=== PATIENT | female | born 1975 | race Caucasian/White ===

== ENCOUNTER 2020-07-04 18:12 | Inpatient (IN) ==
[2020-07-04] MEDS ORDERED: ONDANSETRON INJ 2 MG/ML 2 ML VIAL IV STA (18:43)
[2020-07-04] MEDS ORDERED: KETOROLAC 30 MG/ML VIAL IV STA (18:43)
[2020-07-04] MEDS ORDERED: SODIUM CHLORIDE 0.9% 500 ML IV SCH (18:45)
--- NOTE | 2020-07-04 18:47 | Emergency Department Note ---
History of Present Illness General Chief complaint: Nausea Stated complaint: BODY [id number] Time Seen by Provider: 07/04/20 18:22 Source: patient Mode of arrival: ambulatory Limitations: no limitations History of Present Illness Provider complaint: Body aches, nausea, chills and headache Maximum Pain Intensity: 9 This is a 44-year-old female who presents to the ED with a chief complaint of body aches, chills, nausea and headache that started when she awoke this morning. She also reports some mild epigastric abdominal pain. She states that [place] at [facility] on Saturday. She denies any sick contacts. She denies any upper respiratory symptoms. No urinary symptoms. No abnormal vaginal discharge or bleeding. Denies any fevers. She took NyQuil which did not help. She denies the possibility of . She has an IUD. No other complaints at this time. Home Medications Home Medications Medication Instructions Recorded Confirmed Type bupropion HCl 300 mg PO QAM 11/29/18 03/29/19 History fluticasone propionate [Flonase 2 spray INTRANASAL QAM 11/29/18 03/29/19 History Allergy Relief] sertraline 150 mg PO QAM 11/29/18 03/29/19 History trazodone 200 mg PO HS 11/29/18 03/29/19 History ziprasidone HCl 80 mg PO HS 11/29/18 03/29/19 History atomoxetine 40 mg PO DAILY 03/29/19 03/29/19 History cyclobenzaprine 10 mg PO TID PRN #10 tab 03/29/19 Rx lamotrigine 50 mg PO BID 03/29/19 03/29/19 History omeprazole 40 mg PO QAM 03/29/19 03/29/19 History ziprasidone HCl 40 mg PO QAM 03/29/19 03/29/19 History cyclobenzaprine 10 mg PO TID PRN #30 tab 04/17/19 Rx oxycodone-acetaminophen [Percocet] 1 - 2 tab PO Q6H PRN #10 tab 04/17/19 Rx Allergies Allergy/AdvReac Type Severity Reaction Status Date / Time morphine Allergy Unknown Hallucinati Verified 07/04/20 20:44 ng Past Med/Surg History Medical History Ankle pain, right Anxiety Bipolar disorder Depression GERD (gastroesophageal reflux disease) Hypertension Surgical History H/O section History of ankle surgery History of appendectomy Social History Smoking Status: Never smoker Preferred Language: Khmer marital status: single current occupational status: unemployed Feels Safe at Home: Yes Review of Systems A total of 10 systems reviewed and were otherwise negative Physical Exam Vital Signs Vital Signs - 24 hr 07/04/20 18:15 07/04/20 19:30 Temperature 37.3 C Temperature Source Oral Pulse Rate 80 Pulse Rate [Right Finger] 54 L Respiratory Rate 20 20 Blood Pressure 127/95 Blood Pressure [Right Arm] 132/83 Blood Pressure Mean 105 Blood Pressure Mean [Right Arm] 99 Pulse Oximetry 97 98 Oxygen Delivery Method Room Air Room Air Sepsis Recent Fever Within 48 Hours No Sepsis New/Unexplained Change in Mental Status No Sepsis Action Taken by Nursing No Action Required CONSTITUTIONAL/VITAL SIGNS: Reviewed / noted above. GENERAL: Non-toxic in appearance. INTEGUMENTARY: Warm, dry, and [place]. HEAD: Normocephalic. EYES: without scleral icterus or trauma. ENT/OROPHARYNX: clear and moist. LYMPHADENOPATHY/NECK: Is supple without lymphadenopathy or meningismus. RESPIRATORY: Lungs clear and equal. CARDIOVASCULAR: Regular rate and rhythm. GI/ABDOMEN: Soft and nontender. No organomegaly or pulsatile mass. No rebound or guarding. Normal bowel sounds. EXTREMITIES: Warm and well perfused. BACK: No CVA tenderness. NEUROLOGICAL: Intact without focal deficits. PSYCHIATRIC: normal affect. MUSCULOSKELETAL: Normally developed with good muscle tone. TRIAGE NURSING DOCUMENTATION REVIEWED. Course Administered Medications Discontinued Medications Sodium Chloride (Nss) 500 mls @ 999 mls/hr IV .Q31M GLADYS Stop: 07/04/20 19:15 Last Infusion: 07/04/20 19:39 Dose: 0 mls/hr Documented by: [id number] Admin: 07/04/20 19:05 Dose: 999 mls/hr Documented by: [id number] Ketorolac Tromethamine (Ketorolac 30 Mg/Ml Vial) 30 mg IV NOW STA Stop: 07/04/20 18:44 Last Admin: 07/04/20 19:04 Dose: 30 mg Documented by: [id number] Ondansetron HCl (Ondansetron Inj 2 Mg/Ml 2 Ml Vial) 4 mg IV NOW STA Stop: 07/04/20 18:44 Last Admin: 07/04/20 19:04 Dose: 4 mg Documented by: [id number] Medical Decision Making Differential Diagnosis Differential includes acute coronary syndrome, myocardial infarction, CVA, TIA, anemia, infection, pneumonia, UTI, pyelonephritis, poor nutrition, dehydration, electrolyte disturbance,hypoglycemia. Medical Records Attestation: I reviewed the patient's medical records. Home Medications Current Medication List: was personally reviewed by me Laboratory Data Attestation: I reviewed the patient's lab results. Result diagrams: 07/04/20 19:00 07/04/20 19:00 Lab Results 07/04/20 07/04/20 07/04/20 Range/Units 19:00 19:00 20:05 WBC 7.87 (4.8-10.8) K/uL RBC 4.70 (4.2-5.4) M/uL Hgb 13.2 (12.0-16.0) g/dL Hct 40.6 (37-47) % MCV 86.4 (80-100) fL MCH 28.1 (25-34) pg MCHC 32.5 (32-36) g/dL RDW Std Deviation 39.8 (36.4-46.3) fL RDW Coeff of Seth 12.5 (11.5-14.5) % Plt Count 244 (130-400) K/uL MPV 9.5 (7.4-10.4) fL Immature Gran % (Auto) 0.3 % Neut % (Auto) 71.3 % Lymph % (Auto) 20.8 % Terry % (Auto) 5.8 % Eos % (Auto) 1.7 % Baso % (Auto) 0.1 % Neut # (Auto) 5.61 (1.4-6.5) K/uL Lymph # (Auto) 1.64 (1.2-3.4) K/uL Terry # (Auto) 0.46 (0.11-0.59) K/uL Eos # (Auto) 0.13 (0-0.5) K/uL Baso # (Auto) 0.01 (0-0.2) K/uL Immature Gran # (Auto) 0.02 (0.00-0.02) K/uL Sodium 136 (136-145) mmol/L Potassium 3.7 (3.5-5.1) mmol/L Chloride 103 (98-107) mmol/L Carbon Dioxide 27 (21-32) mmol/L Anion Gap 6.0 (3-11) BUN 10 (7-18) mg/dl Creatinine 1.03 (0.6-1.2) mg/dl Est Cr Clr Drug Dosing 74.0 ml/min Est GFR ( Amer) 75.5 Est GFR (Non-Af Amer) 65.1 BUN/Creatinine Ratio 9.7 L (10-20) Glucose 96 (70-99) mg/dl Calcium 9.0 (8.5-10.1) mg/dl Total Bilirubin 0.4 (0.2-1) mg/dl AST 14 L (15-37) U/L ALT 29 (12-78) U/L Alkaline Phosphatase 67 (45-117) U/L Total Protein 7.7 (6.4-8.2) gm/dl Albumin 3.8 (3.4-5.0) gm/dl Globulin 3.9 (2.5-4.0) gm/dl Albumin/Globulin Ratio 1.0 (0.9-2) Lipase 1752 H (73-393) U/L Urine Color Yellow Urine Appearance Clear (Clear) Urine pH 6.5 (4.5-7.5) Ur Specific [place] 1.033 H (1.000-1.030) Urine Protein Negative (Negative) Urine Glucose (UA) Negative (Negative) Urine Ketones Negative (Negative) Urine Blood Negative (Negative) Urine Nitrite Negative (Negative) Urine Bilirubin Negative (Negative) Urine Urobilinogen Negative (Negative) Ur Leukocyte Esterase Trace H (Negative) Urine WBC (Auto) 5-10 H (0-5) /hpf Urine RBC (Auto) 0-4 (0-4) /hpf U Hyaline Cast (Auto) 1-5 (0-5) /lpf U Epithel Cells (Auto) >30 H (0-5) /lpf Urine Bacteria (Auto) 2+ H (Negative) POC Ur Test (NEG) 07/04/20 Range/Units 20:05 WBC (4.8-10.8) K/uL RBC (4.2-5.4) M/uL Hgb (12.0-16.0) g/dL Hct (37-47) % MCV (80-100) fL MCH (25-34) pg MCHC (32-36) g/dL RDW Std Deviation (36.4-46.3) fL RDW Coeff of Seth (11.5-14.5) % Plt Count (130-400) K/uL MPV (7.4-10.4) fL Immature Gran % (Auto) % Neut % (Auto) % Lymph % (Auto) % Terry % (Auto) % Eos % (Auto) % Baso % (Auto) % Neut # (Auto) (1.4-6.5) K/uL Lymph # (Auto) (1.2-3.4) K/uL Terry # (Auto) (0.11-0.59) K/uL Eos # (Auto) (0-0.5) K/uL Baso # (Auto) (0-0.2) K/uL Immature Gran # (Auto) (0.00-0.02) K/uL Sodium (136-145) mmol/L Potassium (3.5-5.1) mmol/L Chloride (98-107) mmol/L Carbon Dioxide (21-32) mmol/L Anion Gap (3-11) BUN (7-18) mg/dl Creatinine (0.6-1.2) mg/dl Est Cr Clr Drug Dosing ml/min Est GFR ( Amer) Est GFR (Non-Af Amer) BUN/Creatinine Ratio (10-20) Glucose (70-99) mg/dl Calcium (8.5-10.1) mg/dl Total Bilirubin (0.2-1) mg/dl AST (15-37) U/L ALT (12-78) U/L Alkaline Phosphatase (45-117) U/L Total Protein (6.4-8.2) gm/dl Albumin (3.4-5.0) gm/dl Globulin (2.5-4.0) gm/dl Albumin/Globulin Ratio (0.9-2) Lipase (73-393) U/L Urine Color Urine Appearance (Clear) Urine pH (4.5-7.5) Ur Specific [place] (1.000-1.030) Urine Protein (Negative) Urine Glucose (UA) (Negative) Urine Ketones (Negative) Urine Blood (Negative) Urine Nitrite (Negative) Urine Bilirubin (Negative) Urine Urobilinogen (Negative) Ur Leukocyte Esterase (Negative) Urine WBC (Auto) (0-5) /hpf Urine RBC (Auto) (0-4) /hpf U Hyaline Cast (Auto) (0-5) /lpf U Epithel Cells (Auto) (0-5) /lpf Urine Bacteria (Auto) (Negative) POC Ur Test NEG (NEG) MDM Narrative Patient presents with a little over 24 hours worth of body aches, chills, nausea and headache. She has no other complaints at this time. Her exam reveals some tenderness in the epigastric area. Her vital signs are normal. She is afebrile. The patient's CBC and chemistry panel was normal. Lipase is 1752. test is negative. Urine appears contaminated but not infected. The patient's test results suggest acute pancreatitis. She was hydrated with IV fluids and given IV Toradol and IV Zofran. She will be seen by the hospitalist. Impression & Plan Acute pancreatitis, Nausea Discharge Plan Visit Data Chief Complaint: Nausea Stated Complaint: BODY [id number] ED Provider: Von Walters Discharge Problem: Acute pancreatitis, Nausea Patient Disposition: Being Evaluated by Hospitalist Forms Stand Alone Forms: [facility] Prescriptions Prescriptions: No Action lamotrigine 25 mg tablet 50 mg PO BID RF: 0 omeprazole 20 mg capsule,delayed release(DR/EC) 40 mg PO QAM RF: 0 ziprasidone HCl 40 mg capsule 40 mg PO QAM RF: 0 atomoxetine 40 mg capsule 40 mg PO DAILY RF: 0 cyclobenzaprine 10 mg tablet 10 mg PO TID PRN (Reason: muscle spasm) Qty: 10 RF: 0 cyclobenzaprine 10 mg tablet 10 mg PO TID PRN (Reason: muscle spasm) Qty: 30 RF: 0 oxycodone-acetaminophen [Percocet] 5-325 mg tablet 1 - 2 tab PO Q6H PRN (Reason: pain) Qty: 10 RF: 0 sertraline 100 mg tablet 150 mg PO QAM RF: 0 trazodone 100 mg tablet 200 mg PO HS RF: 0 fluticasone propionate [Flonase Allergy Relief] 50 mcg/actuation spray,suspension 2 spray Intranasal QAM RF: 0 ziprasidone HCl 80 mg capsule 80 mg PO HS RF: 0 bupropion HCl 300 mg tablet extended release 24 hr 300 mg PO QAM RF: 0 Referrals Referrals: Nisha Tinoco MD [Primary Care Provider] -
[2020-07-04 19:11] LABS: Basophils # (auto) 0.01 K/uL (0-0.2); Basophils % (auto) 0.1 %; Eosinophils # (auto) 0.13 K/uL (0-0.5); Eosinophils % (auto) 1.7 %; Hematocrit (blood only) 40.6 % (37-47); Hemoglobin 13.2 g/dL (12.0-16.0); Immature Granulocytes # (auto) 0.02 K/uL (0.00-0.02); Immature Granulocytes % (auto) 0.3 %; Lymphocytes # (auto) 1.64 K/uL (1.2-3.4); Lymphocytes % (auto) 20.8 %; Mean Corpuscular Hemoglobin 28.1 pg (25-34); Mean Corpuscular Hgb Conc 32.5 g/dL (32-36); Mean Corpuscular Volume 86.4 fL (80-100); Mean Platelet Volume 9.5 fL (7.4-10.4); Monocytes # (auto) 0.46 K/uL (0.11-0.59); Monocytes % (auto) 5.8 %; Neutrophils # (auto) 5.61 K/uL (1.4-6.5); Neutrophils % (auto) 71.3 %; Platelet Count 244 K/uL (130-400); RDW Coefficient of Variation 12.5 % (11.5-14.5); RDW Standard Deviation 39.8 fL (36.4-46.3); White Blood Count 7.87 K/uL (4.8-10.8)
[2020-07-04 19:28] LABS: Albumin Level 3.8 gm/dl (3.4-5.0); BUN Creatinine Ratio 9.7 (10-20); Est GFR (African American) 75.5; Est GFR (Non-African American) 65.1; Potassium 3.7 mmol/L (3.5-5.1)
[2020-07-04 19:31] LABS: Bilirubin,Total 0.4 mg/dl (0.2-1); Globulin 3.9 gm/dl (2.5-4.0); Total Protein 7.7 gm/dl (6.4-8.2)
[2020-07-04 20:19] LABS: Appearance Urine Clear (Clear); Bacteria Urine Automated 2+ (Negative); Bilirubin Urine Negative (Negative); Blood Urine Negative (Negative); Color Urine Yellow; Epithelial Cell Urine Auto >30 /lpf (0-5); Glucose Urine UA Negative (Negative); Ketones Urine Negative (Negative); Leukocyte Esterase Urine Trace (Negative); Nitrite Urine Negative (Negative); Protein Urine Negative (Negative); RBC Urine Automated 0-4 /hpf (0-4); Specific Gravity Urine 1.033 (1.000-1.030); Urobilinogen Urine Negative (Negative); pH Urine 6.5 (4.5-7.5)
[2020-07-04] MEDS ORDERED: ACETAMINOPHEN 325 MG TAB ONE (21:15)
[2020-07-04] MEDS ORDERED: ACETAMINOPHEN 325 MG TAB PO STA (21:18)
[2020-07-04] MEDS ORDERED: FLUTICASONE PROPIONATE NA SPR 16 GM BTL PRN (22:35)
[2020-07-04] MEDS ORDERED: CYCLOBENZAPRINE HCL 10 MG TAB PO PRN (22:47)
[2020-07-04] MEDS: SODIUM CHLORIDE 0.9% 1000ML 1,000 ML IV SCH (22:48)
[2020-07-04] MEDS ORDERED: IOVERSOL 100ml IV ONE (23:39)
[2020-07-04] MEDS: MIRTAZAPINE TAB 15 MG TAB PO SCH (23:40)
[2020-07-04] MEDS: DOXAZOSIN MESYLATE 1 MG TAB PO SCH (23:40)
[2020-07-04] MEDS: cefTRIAXone SODIUM 2,000 MG in DEXTROSE 5% 50 ML IV SCH (23:40)
--- NOTE | 2020-07-05 01:23 | History and Physical Report ---
DATE OF ADMISSION: 07/04/2020 CHIEF COMPLAINT: Nausea, abdominal pain. HISTORY OF PRESENT ILLNESS: This is a 44-year-old female with past medical history significant for chronic kidney disease stage II, prehypertension, history of herpes labialis, attention deficit disorder, history of tobacco disorder, history of daytime somnolence, history of bipolar disorder, presents with nausea and abdominal pain. The patient says she woke up today with headaches, nausea and has some abdominal discomfort in the epigastric region and body aches and chills. She had 1 episode of diarrhea. Because of ongoing symptoms, she came to the ER. Denies any fever, chills. No shortness of breath, no chest pain. No earache, no runny nose, no sore throat. No loss of sense of smell or taste. No rash seen. Was nauseous, but no vomiting. No burning micturition, no hematuria. No swelling in the legs. The patient says she went to [place] last Saturday. There were lot of people, but denies any exposure to sick patients. The patient's labs are all fine except lipase elevated at 1752 and urinalysis shows trace leukocyte esterase and +2 bacteria. The patient is afebrile and hemodynamically stable in the ER. ALLERGIES: TO MORPHINE. PAST MEDICAL HISTORY: As mentioned above. PAST SURGICAL HISTORY: , colonoscopy, fusion of the right ankle joint, appendectomy. MEDICATIONS: The patient is currently on atomoxetine 10 mg p.o. a.m., bupropion 300 mg p.o. a.m., buspirone 15 mg p.o. t.i.d., cyclobenzaprine 10 mg p.o. t.i.d. p.r.n., doxazosin 1 mg p.o. at bedtime, Flonase 2 sprays intranasal q.a.m. p.r.n., lamotrigine 100 mg p.o. a.m., Remeron 15 mg p.o. at bedtime, omeprazole 40 mg p.o. a.m., Zoloft 100 mg p.o. a.m. FAMILY HISTORY: Significant for father had asthma, hypertension, depression, PTSD. Mother had breast cancer, diabetes, thyroid disorder. Son has asthma, depression, anxiety, PTSD. Paternal cousin has breast cancer. Paternal grandmother had colon cancer. Paternal grandfather had stroke. Maternal grandfather had heart disorder. Maternal grandfather also had hypertension. SOCIAL HISTORY: . Smoked quarter pack a day for 10 years, quit in 05/2019. Used to drink couple of beers a day, but quit about 1 month ago. No drug use. REVIEW OF SYMPTOMS: As per HPI. Rest of review of symptoms negative. PHYSICAL EXAMINATION: GENERAL: The patient is obese, not in acute distress. VITAL SIGNS: Temperature 37.3, pulse 70, respiratory rate 20, blood pressure 121/71, oxygen 98% on room air. HEENT: Pupils equal, round, and reactive to light. Oral mucosa moist. NECK: No JVD seen. No neck masses seen. Supple. CARDIOVASCULAR SYSTEM: S1, S2 heard. Regular rate and rhythm. No murmur, no gallop. RESPIRATORY SYSTEM: Normal AP diameter. No accessory muscle use. No wheezing, no crackles. ABDOMEN: Soft, bowel sounds present. Mild epigastric discomfort present. No distention seen. CENTRAL NERVOUS SYSTEM: Cranial nerves II-XII grossly intact. Nonfocal. EXTREMITIES: No edema, no erythema. LABORATORY DATA: WBC 7.8, hemoglobin 13.2, hematocrit 40.6, platelets 244. Sodium 136, potassium 3.7, chloride 103, bicarb 27, BUN 10, creatinine 1.03, serum glucose 96, calcium 9. Total bilirubin 0.4, AST 14, ALT 29, alkaline phosphatase 67, lipase 1752. Urinalysis: Trace leukocyte esterase, +2 bacteria. ASSESSMENT AND PLAN: This is a 44-year-old female who presents with headache, body aches, chills, nausea and abdominal discomfort. 1. Pancreatitis. The patient has elevated lipase of 1752 and she has epigastric tenderness, possibly pancreatitis. The patient says she used to drink 2 or 3 beers every day, but quit about 1 month ago. Calcium level is normal. We will check the fasting lipid profile. We will check the CT scan. We will keep her n.p.o., IV fluids, IV antiemetics. Currently, the patient is not in severe pain. THE PATIENT IS ALLERGIC TO MORPHINE. We will monitor. Consult GI in a.m. for further recommendations. 2. Possible urinary tract infection. Her symptoms of headache and body aches, chills could be from the urinary tract infection. Her UA is slightly positive for leukocyte esterase and +2 bacteria. We will started on Rocephin, follow the cultures. Fluids as above. The patient went to the [facility] last Saturday, but she does not have any COVID symptoms. No fever, no shortness of breath, no loss of sense of smell or taste, but if any concerning, we will consider ordering COVID testing.Will follow cxr. 3. History of bipolar and attention deficit disorder. Continue home medications of Lamictal, mirtazapine, Zoloft, buspirone, bupropion and atomoxetine. Follow with PCP and Psychiatry. 4. Gastroesophageal reflux disease. Continue omeprazole. 5. Deep venous thrombosis prophylaxis, SCDs for now. DISPOSITION: Admit to medical floor. Expect discharge home and follow with family doctor. Level 1 full code. MTDD
[2020-07-05] MEDS: ACETAMINOPHEN 325 MG TAB PO PRN ×3 (04:34→20:27)
[2020-07-05] MEDS: SODIUM CHLORIDE 0.9% 1000ML 1,000 ML IV SCH ×4 (04:35→19:29)
[2020-07-05 05:38] LABS: Basophils # (auto) 0.01 K/uL (0-0.2); Basophils % (auto) 0.2 %; Eosinophils # (auto) 0.07 K/uL (0-0.5); Eosinophils % (auto) 1.1 %; Hematocrit (blood only) 34.9 % (37-47); Hemoglobin 11.2 g/dL (12.0-16.0); Immature Granulocytes # (auto) 0.01 K/uL (0.00-0.02); Immature Granulocytes % (auto) 0.2 %; Lymphocytes # (auto) 0.85 K/uL (1.2-3.4); Lymphocytes % (auto) 13.2 %; Mean Corpuscular Hgb Conc 32.1 g/dL (32-36); Mean Corpuscular Volume 87.3 fL (80-100); Mean Platelet Volume 9.9 fL (7.4-10.4); Monocytes # (auto) 0.37 K/uL (0.11-0.59); Monocytes % (auto) 5.7 %; Neutrophils # (auto) 5.15 K/uL (1.4-6.5); Neutrophils % (auto) 79.6 %; Platelet Count 202 K/uL (130-400); RDW Coefficient of Variation 12.6 % (11.5-14.5); RDW Standard Deviation 40.8 fL (36.4-46.3); White Blood Count 6.46 K/uL (4.8-10.8)
[2020-07-05 06:12] LABS: BUN Creatinine Ratio 9.2 (10-20); Calcium 7.8 mg/dl (8.5-10.1); Creatinine Clr Calc Pharmacy 80.2 ml/min; Est GFR (African American) 83.3; Est GFR (Non-African American) 71.8; Potassium 3.5 mmol/L (3.5-5.1)
[2020-07-05] MEDS ORDERED: TRAMADOL HCL 50 MG TABLET PO ONE (07:58)
[2020-07-05] MEDS: SERTRALINE HCL 100 MG TABLET PO SCH (08:00)
[2020-07-05] MEDS: BusPIRone 15 MG TAB PO SCH ×3 (08:00→20:24)
[2020-07-05] MEDS: PANTOprazole 40 MG TAB PO SCH (08:01)
[2020-07-05] MEDS: lamoTRIgine 100 MG TAB PO SCH (08:01)
[2020-07-05] MEDS: BuPROPion XL 300 MG TABCR PO SCH (08:01)
[2020-07-05] MEDS: ATOMOXETINE HCL 10 MG CAPSULE PO SCH (08:02)
--- NOTE | 2020-07-05 08:18 | XRay Report ---
SINGLE VIEW CHEST CLINICAL HISTORY: Dyspnea. FINDINGS: An AP, portable, upright chest radiograph is compared to study dated 11/29/2018. The cardiome diastinal silhouette is unremarkable. Mild atelectasis is noted at the lung bases. The lungs and pleu ral spaces are otherwise clear. No pneumothorax is seen. The bony thorax is grossly intact. There is moderate thoracic scoliosis. IMPRESSION: No active disease in the chest. ACT 112: Negative or not required by law. Electronically signed by: Maximus Ortega M.D. 07/05/2020 8:16 AM
--- NOTE | 2020-07-05 09:03 | CT Scan Report ---
CT SCAN OF THE ABDOMEN AND PELVIS WITH IV CONTRAST CLINICAL HISTORY: Generalized abdominal pain. Elevated lipase. COMPARISON STUDY: Abdominal CT dated 02/17/2016. TECHNIQUE: Following the IV administration of 93 cc of Optiray 320, CT scan of the abdomen and pelvi s is performed from the lung bases to the proximal femora. Images are reviewed in the axial, sagittal , and coronal planes. IV contrast was administered without complication. A dose lowering technique wa s utilized adhering to the principles of ALARA. CT DOSE: 749.75 mGy.cm FINDINGS: Lung bases: The heart is normal in size noting trace pericardial effusion. The lung bases are clear n oting mild left basilar atelectasis. Liver: The contrast-enhanced liver is normal in size, contour, and attenuation. There is no intrahepa tic biliary ductal dilatation. The hepatic veins and portal veins are patent. Gallbladder: The gallbladder is mildly distended but otherwise normal in appearance. Spleen: Normal in size and attenuation. Pancreas: The pancreas is normal in appearance. The duct is normal in caliber and the gland enhances homogeneously. No surrounding inflammation is identified. There is no peripancreatic fluid collection . The splenic vein is patent. Adrenal glands: Unremarkable. Kidneys: The contrast enhanced kidneys are normal in size and without hydronephrosis. The kidneys enh ance symmetrically. Abdominal vasculature: The abdominal aorta is normal in course and caliber. Bowel: There is no bowel obstruction. The appendix is not identified and reported surgically absent. Peritoneum: There is no intraperitoneal free air or abdominal ascites. There is a large fat-containin g umbilical hernia. Lymphadenopathy: None. Pelvic viscera: The bladder wall appears thickened and there is pericystic inflammation. The uterus a nd adnexa are normal as visualized noting an intrauterine device in place. There are tiny ovarian fol licles. Skeletal structures: No lytic or blastic lesions are seen. There is thoracolumbar scoliosis. Mild lum bosacral spondylosis is noted. There is also mild sclerotic change in the sacroiliac joints. IMPRESSION: 1. The pancreas is normal in appearance. There is no CT evidence of acute pancreatitis as clinically queried. 2. Findings suggest cystitis. Correlation with clinical findings and urinalysis will be required. 3. The gallbladder is distended but otherwise normal in appearance. ACT 112: Negative or not required by law. Electronically signed by: Maximus Ortega M.D. 07/05/2020 9:01 AM
--- NOTE | 2020-07-05 10:03 | Gastrointestinal Consultation ---
Date of Consultation July 05, 2020 Assessment & Plan (1) Serum lipase elevation: 44 y/o female with PMHx tobacco use, ADHD and others admitted with nausea/headache, body aches, found to have elevated lipase with normal appearing pancreas on CT (distended GB noted). Since admission lipase 1700->213 with no elevated LFTs, leukocytosis. Currently abd is soft, she's afebrile, HD stable. - Reviewed diff dx with pt (viral etiology, vs GB stone vs ETOH, autoimmune, underlying pancreatic mass, vs other) - MRCP today - Afterward can start trial of clear liquid diet - F/u pending results of MRCP (if neg, recommend outpt EGD/EUS in 4 weeks - Would avoid ETOH, tobacco and this was discussed with pt Thank you for allowing us to participate in the care of this patient. Please call with any acute changes, questions or concerns. Please see addendum below with additional recommendation from my supervising physician. Supervising Physician Co-Signing Physician Notes I performed a history and physical examination of the patient today, including specifically on physical exam - soft abdomen. I have discussed the patient's management with the advanced practitioner. Please refer to the nurse practitioner's note for the documented findings and plan of care. Mild acute pancreatitis, unclear etiology. MRCP today EUS as OP. History of Present Illness Reason for Consultation: pancreatitis Attending Physician: Glen Landry MD History of Present Illness Pt is a 44 y/o female with PMhx CKD, ADHD, tobacco use, bipolar disorder, and others admitted yesterday with nausea, headache and body aches that began suddenly, found to have lipase 1700 with normal LFTs, no leukocytosis. CTAP with unremarkable pancreas but GB was noted to be distended. Overnight has a mild headache. Denies n/v, abd pain, fever, chills, CP, SOB, hematemesis, melena, hematochezia, jaundice, dark urine, weight loss, change in appetite, leg edema. Overnight lipase trended down to 213. Triglycerides 120's. She denies a prior h/o pancreatitis. She notes a prior h/o ETOH abuse, cutting back approx 2 years ago. She now drinks maybe once a month, 6 beers at a time; last ETOH was 1 month ago. She quit smoking 14 days ago. Fam hx: Father with ETOH pancreatitis. Grandmother had colon CA Colonoscopy 05/20/20: Normal Allergies Allergy/AdvReac Type Severity Reaction Status Date / Time morphine Allergy Unknown Hallucinati Verified 07/04/20 20:44 ng Home Medications Home Medications Medication Instructions Recorded Confirmed Type bupropion HCl 300 mg PO QAM 11/29/18 07/04/20 History fluticasone propionate [Flonase 2 spray INTRANASAL QAM PRN 11/29/18 07/04/20 History Allergy Relief] sertraline 100 mg PO QAM 11/29/18 07/04/20 History omeprazole 40 mg PO QAM 03/29/19 07/04/20 History atomoxetine 10 mg PO QAM 07/04/20 07/04/20 History buspirone 15 mg PO TID 07/04/20 07/04/20 History cyclobenzaprine 10 mg PO TID PRN 07/04/20 07/04/20 History doxazosin 1 mg PO HS 07/04/20 07/04/20 History lamotrigine 100 mg PO QAM 07/04/20 07/04/20 History mirtazapine 15 mg PO HS 07/04/20 07/04/20 History Patient History Medical History Ankle pain, right Anxiety Bipolar disorder Depression GERD (gastroesophageal reflux disease) Hypertension Surgical History H/O section History of ankle surgery History of appendectomy Social History Smoking Status: Former smoker Cigarettes Per Day: 5; Smoking End Date: 06/17/20; Second Hand Exposure: No; Do You Dip or Chew Tobacco: No; Tobacco Cessation Education Requested by Patient: No Hx Alcohol Use: Yes Hx Substance Use: No Preferred Language: Bruneian Communication Ability: Effective Product Safety Administrator Required: No Beliefs That Will Affect Care: None marital status: single Current Living Situation: Family Current Living Situation Comment: son 17y/o current occupational status: unemployed Other Information That Helps Us Care for You: No Feels Safe at Home: Yes Safety Concerns: Feels Safe At This Time Review of Systems Review of Systems: All systems reviewed & are unremarkable except as noted in HPI & below Constitutional: no fever, no chills, no fatigue and no weight loss Eyes: no eye pain and no worsening vision Ear, Nose, Mouth, Throat: no tinnitus, no dizziness, no nasal discharge and no epistaxis Respiratory: no cough, no dyspnea, no dyspnea on exertion and no wheezing Cardiovascular: no chest pain, no orthopnea, no palpitations and no edema Gastrointestinal: as per Subjective / HPI Genitourinary: no dysuria, no urinary frequency, no urinary incontinence and n o hematuria Musculoskeletal: no stiffness and no myalgia Neurologic: no localized weakness, no paralysis, no tremor(s) and no headache(s) Endocrine: no polydipsia and no polyuria Hematologic / Lymphatic: no easy bleeding and no night sweats Physical Exam Constitutional: WD/WN, vitals as above Eyes: + anicteric sclerae Respiratory: normal respiratory effort Cardiovascular: Rate/Rhythm: regular rate and regular rhythm Gastrointestinal (Abdomen): Inspection/Auscultation: abdomen normal to inspection; abdomen not distended Percussion/Palpation: abdomen soft; abdomen nontender Skin: no rashes, warm and dry Psychiatric: A+Ox3, euthymic affect Results & Data ([facility]) Vital Signs (Past 12 Hours) Vital Signs Temp Pulse Pulse Resp BP BP BP 07/05/20 07:25 36.5 C 71 16 131/78 07/04/20 23:38 37.0 C 59 L 14 110/67 07/04/20 22:20 36.9 C 69 16 105/68 07/04/20 22:07 62 20 121/71 Pulse Ox 07/05/20 07:25 96 07/04/20 23:38 96 07/04/20 22:20 92 07/04/20 22:07 95
[2020-07-05] MEDS: ONDANSETRON INJ 2 MG/ML 2 ML VIAL IV PRN ×2 (12:49→18:15)
--- NOTE | 2020-07-05 16:06 | Magnetic Resonance Report ---
MRCP CLINICAL HISTORY: Pancreatitis. TECHNIQUE: Utilizing a 1.5 Liane magnet and dedicated coil, multiplanar, [facility]cho [facility] was performed utilizing heavily T2 weighted pulsing sequences without IV contrast. COMPARISON STUDY: CT of the abdomen and pelvis July 04, 2020. FINDINGS: Incidental note is made of dextroscoliosis of visualized portions of the thoracic spine. Th e gallbladder is distended. This is unchanged since prior CT. No pericholecystic infiltration or flui d. No biliary or pancreatic ductal dilatation is noted. No common bile duct calculi are identified. T he course and caliber of the main pancreatic duct is normal. No peripancreatic infiltration or fluid is noted. There is no abdominal lymphadenopathy or ascites. Unenhanced images of the liver, spleen, a drenal glands and kidneys are normal. There is no hydronephrosis. The caliber and wall thickness of v isualized small and large bowel are normal. IMPRESSION: 1. No biliary ductal dilatation. No common bile duct calculi. 2. Normal course and caliber of the main pancreatic duct. Unremarkable appearance of the pancreas on unenhanced exam. 3. Gallbladder distention which is unchanged since prior CT. No pericholecystic infiltration or fluid . ACT 112: Negative or not required by law. Electronically signed by: Pineda Mcmahon M.D. 07/05/2020 4:05 PM
[2020-07-05] MEDS ORDERED: LORATADINE 10 MG TAB PO ONE (16:30)
[2020-07-05] MEDS: DOXAZOSIN MESYLATE 1 MG TAB PO SCH (20:24)
[2020-07-05] MEDS: MIRTAZAPINE TAB 15 MG TAB PO SCH (20:24)
--- NOTE | 2020-07-05 21:52 | Hospitalist Progress Note ---
Date of Service July 05, 2020 Assessment & Plan (1) Acute pancreatitis: Lipase 1752. ? etiology- no recent alcohol consumption. CT showed distended gallbladder, no radiographic signs of pancreatitis. Receiving IV fluids. GI consulted. MRCP recommended. (2) Abnormal urinalysis: UA showed trace leukocyte esterase, 5-10 WBC's, 2+ bacteria, many epithelial cells. No fever or dysuria. CT suggested cystitis. Receiving IV ceftriaxone pending C&S report. (3) DVT prophylaxis: SCD's. Ambulate. (4) Discharge planning issues: Anticipated discharge to home. Medical follow-up with Dr. Arellano. Admission and Anticipated Discharge Date Admission Date: July 04, 2020 Subjective Recheck for pancreatitis and other problems. Patient seen in their room around 1610. Feels better. No fever. No abdominal pain, nausea, vomiting, diarrhea. No dysuria or flank pain. Complains of left ear pain. Review of Systems: Constitutional- no fever. Cardiac- no chest pain. Pulmonary- no cough or SOB. GI- as noted above. - as noted above. Otherwise, as noted above. Physical Exam Constitutional: no acute distress ENMT: moderate cerumen left ear, TM clear Respiratory: no respiratory distress Auscultation: lungs clear to auscultation bilaterally Cardiovascular: Rate/Rhythm: regular rate and regular rhythm Vessels: no JVD Extremities: no calf tenderness and no edema Gastrointestinal (Abdomen): Inspection/Auscultation: abdomen not distended Percussion/Palpation: + abdomen tender (mild epigastric) and abdomen soft Skin: no rashes, warm and dry Psychiatric: Orientation: alert and oriented x 3 Results & Data Results & Data ([facility]) Laboratory Results Laboratory Results - last 24 hr 07/05/20 07/05/20 04:52 04:52 WBC 6.46 RBC 4.00 L Hgb 11.2 L Hct 34.9 L MCV 87.3 MCH 28.0 MCHC 32.1 RDW Std Deviation 40.8 RDW Coeff of Seth 12.6 Plt Count 202 MPV 9.9 Immature Gran % (Auto) 0.2 Neut % (Auto) 79.6 Lymph % (Auto) 13.2 [place] % (Auto) 5.7 Eos % (Auto) 1.1 Baso % (Auto) 0.2 Neut # (Auto) 5.15 Lymph # (Auto) 0.85 L [place] # (Auto) 0.37 Eos # (Auto) 0.07 Baso # (Auto) 0.01 Immature Gran # (Auto) 0.01 Sodium 139 Potassium 3.5 Chloride 109 H Carbon Dioxide 23 Anion Gap 7.0 BUN 9 Creatinine 0.95 Est Cr Clr Drug Dosing 80.2 Est GFR ( Amer) 83.3 Est GFR (Non-Af Amer) 71.8 BUN/Creatinine Ratio 9.2 L Glucose 111 H Calcium 7.8 L Magnesium 2.0 Triglycerides 124 Cholesterol 182 LDL Cholesterol, Calc 105 VLDL Cholesterol, Calc 25 HDL Cholesterol 52 Cholesterol/HDL Ratio 4 Lipase 213 (1) Acute pancreatitis Acute pancreatitis complication: unspecified Pancreatitis type: unspecified pancreatitis type Qualified Code(s): K85.90 - Acute pancreatitis without necrosis or infection, unspecified
[2020-07-05] MEDS: cefTRIAXone SODIUM 2,000 MG in DEXTROSE 5% 50 ML IV SCH (22:06)
[2020-07-06] MEDS: SODIUM CHLORIDE 0.9% 1000ML 1,000 ML IV SCH ×4 (01:26→11:43)
[2020-07-06 05:40] LABS: Hematocrit (blood only) 35.2 % (37-47); Hemoglobin 11.1 g/dL (12.0-16.0); Mean Corpuscular Hemoglobin 27.8 pg (25-34); Mean Corpuscular Hgb Conc 31.5 g/dL (32-36); Mean Corpuscular Volume 88.2 fL (80-100); Mean Platelet Volume 9.9 fL (7.4-10.4); Platelet Count 177 K/uL (130-400); RDW Coefficient of Variation 12.6 % (11.5-14.5); RDW Standard Deviation 40.8 fL (36.4-46.3); Red Blood Count 3.99 M/uL (4.2-5.4); White Blood Count 6.25 K/uL (4.8-10.8)
[2020-07-06 06:08] LABS: BUN Creatinine Ratio 7.6 (10-20); Calcium 7.7 mg/dl (8.5-10.1); Creatinine Clr Calc Pharmacy 110.4 ml/min; Est GFR (Non-African American) 104.4
[2020-07-06] MEDS: BusPIRone 15 MG TAB PO SCH ×3 (07:57→20:00)
[2020-07-06] MEDS: LORATADINE 10 MG TAB PO SCH (07:58)
[2020-07-06] MEDS: BuPROPion XL 300 MG TABCR PO SCH (07:58)
[2020-07-06] MEDS: lamoTRIgine 100 MG TAB PO SCH (07:58)
[2020-07-06] MEDS: PANTOprazole 40 MG TAB PO SCH (07:59)
[2020-07-06] MEDS: ATOMOXETINE HCL 10 MG CAPSULE PO SCH (07:59)
[2020-07-06] MEDS: SERTRALINE HCL 100 MG TABLET PO SCH (08:00)
[2020-07-06] MEDS: ACETAMINOPHEN 325 MG TAB PO PRN ×2 (08:03→13:26)
[2020-07-06] MEDS: ONDANSETRON INJ 2 MG/ML 2 ML VIAL IV PRN ×2 (08:04→16:16)
--- NOTE | 2020-07-06 08:37 | Gastroenterology Progress Note ---
Date of Service July 06, 2020 Assessment & Plan (1) Serum lipase elevation: 44 y/o female with PMHx tobacco use, ADHD and others admitted with nausea/headache, body aches, found to have elevated lipase with normal appearing pancreas on CT (distended GB noted). Since admission lipase 1700->213 with no elevated LFTs, leukocytosis. Currently having no GI complaints, no abd pain, n/v. - MRCP yesterday demonstrated no iman dil, CBD stone; PD and pancreas unremarkable, with distended GB without infiltration or fluid. - Etiology of lipase elevation remains unclear - Reviewed diff dx with pt (viral etiology, vs GB stone vs ETOH, autoimmune, underlying pancreatic mass, vs other - Can advance diet as tolerated - Recommend outpt EGD/EUS in 4 weeks and our office will arrange this - Would avoid ETOH, tobacco and this was discussed with pt. Low-fat diet - GI will sign off, please call with questions Please see addendum below with additional recommendation from my supervising physician. Admission and Anticipated Discharge Date Admission Date: July 04, 2020 Supervising Physician Co-Signing Physician Notes I performed a history and physical examination of the patient today, including specifically on physical exam - soft abdomen. I have discussed the patient's management with the advanced practitioner. Please refer to the nurse practitioner's note for the documented findings and plan of care. MRCP negative, plan for EUS as OP. Recall GI if needed. Subjective Pt seen and examined; doing well; no acute events overnight. Denies abd pain, n/v, fever, chills. Physical Exam Constitutional: WD/WN, vitals as above Respiratory: normal respiratory effort Skin: no rashes, warm and dry Psychiatric: A+Ox3, euthymic affect Results & Data ([facility]) Vital Signs (Past 12 Hours) Vital Signs Temp Pulse Resp BP Pulse Ox 07/06/20 08:01 36.9 C 77 16 123/81 96 07/06/20 07:55 36.9 C 77 16 123/81 96 07/06/20 00:32 36.5 C 64 14 145/84 H 94 Laboratory Results 07/06/20 07/06/20 Range/Units 05:19 05:19 WBC 6.25 (4.8-10.8) K/uL RBC 3.99 L (4.2-5.4) M/uL Hgb 11.1 L (12.0-16.0) g/dL Hct 35.2 L (37-47) % MCV 88.2 (80-100) fL MCH 27.8 (25-34) pg MCHC 31.5 L (32-36) g/dL RDW Std Deviation 40.8 (36.4-46.3) fL RDW Coeff of Esth 12.6 (11.5-14.5) % Plt Count 177 (130-400) K/uL MPV 9.9 (7.4-10.4) fL Sodium 140 (136-145) mmol/L Potassium 4.0 (3.5-5.1) mmol/L Chloride 112 H (98-107) mmol/L Carbon Dioxide 21 (21-32) mmol/L Anion Gap 7.0 (3-11) BUN 5 L (7-18) mg/dl Creatinine 0.69 (0.6-1.2) mg/dl Est Cr Clr Drug Dosing 110.4 ml/min Est GFR ( Amer) 121.0 Est GFR (Non-Af Amer) 104.4 BUN/Creatinine Ratio 7.6 L (10-20) Glucose 81 (70-99) mg/dl Calcium 7.7 L (8.5-10.1) mg/dl Diagnostic Findings MRCP 07/05/20 FINDINGS: Incidental note is made of dextroscoliosis of visualized portions of the thoracic spine. The gallbladder is distended. This is unchanged since prior CT. No pericholecystic infiltration or fluid. No biliary or pancreatic ductal di latation is noted. No common bile duct calculi are identified. The course and caliber of the main pancreatic duct is normal. No peripancreatic infiltration or fluid is noted. There is no abdominal lymphadenopathy or ascites. Unenhanced images of the liver, spleen, adrenal glands and kidneys are normal. There is no hydronephrosis. The caliber and wall thickness of visualized small and large bowel are normal. IMPRESSION: 1. No biliary ductal dilatation. No common bile duct calculi. 2. Normal course and caliber of the main pancreatic duct. Unremarkable appearance of the pancreas on unenhanced exam. 3. Gallbladder distention which is unchanged since prior CT. No pericholecystic infiltration or fluid.
[2020-07-06] MEDS: FLUTICASONE PROPIONATE NA SPR 16 GM BTL SCH (11:18)
[2020-07-06] MEDS: LACTOBACILLUS ACIDOPHILUS (FLORANEX) TAB PO SCH ×3 (11:18→20:00)
[2020-07-06] MEDS ORDERED: TRAMADOL HCL 50 MG TABLET PO ONE (15:15)
--- NOTE | 2020-07-06 17:47 | Hospitalist Progress Note ---
Date of Service July 06, 2020 Assessment & Plan (1) Acute pancreatitis: Elevated lipase--unclear etiology DD: Viral etiology, EtOH, autoimmune, Mass, other --CT abdomen not suggestive of acute pancreatitis --MRCP: No biliary ductal dilatation. No common bile duct calculi. Normal course and caliber of the main pancreatic duct. Unremarkable appearance of the pancreas on unenhanced exam. Gallbladder distention which is unchanged since prior CT. No pericholecystic infiltration or fluid. --Appreciate GI input --Advance diet as tolerated --Plan for EGD/EUS in 4 weeks as outpatient --Received IV fluids --Low-fat diet --Continue PPI --Needs follow-up with GI as outpatient (2) Abnormal urinalysis: Urine Culture: Mixed probable skin rosalia CT suggested cystitis. Continue IV ceftriaxone (3) DVT prophylaxis: SCD's. Ambulate. (4) Discharge planning issues: Anticipated discharge to home. Medical follow-up with Dr. Arellano. Admission and Anticipated Discharge Date Admission Date: July 04, 2020 Subjective Patient is seen and examined at bedside Reports chronic nausea, no vomiting Denies any significant abdominal pain Tolerating diet Denies chest pain, shortness of breath, dysuria, hematuria Offers no other complaint Review of Systems Review of Systems: All systems reviewed & are unremarkable except as noted in HPI & below Physical Exam Physical Exam: Physical Exam: Vitals signs as noted above General Appearance:Moderately built and nourished, no apparent distress Head: normocephalic, Atraumatic Eyes: normal inspection, EOMI Neck: supple, Trachea midline Respiratory/Chest: Normal breath sounds, CTA, No accessory muscle use Cardiovascular: S1, S2, No murmur Abdomen/GI:Soft, mild epigastric tender, Bowel sounds present Extremities/Musculoskelatal:normal inspection, no edema Neurologic/Psych:AAOX3, grossly no focal neurological deficits Skin: normal color, warm Results & Data Results & Data ([facility]) Vital Signs (Past 12 Hours) Vital Signs Temp Pulse Resp BP Pulse Ox 07/06/20 15:05 37.0 C 76 16 128/78 96 07/06/20 08:01 36.9 C 77 16 123/81 96 07/06/20 07:55 36.9 C 77 16 123/81 96 Laboratory Results Short CBC 07/06/20 Range/Units 05:19 WBC 6.25 (4.8-10.8) K/uL Hgb 11.1 L (12.0-16.0) g/dL Hct 35.2 L (37-47) % Plt Count 177 (130-400) K/uL [facility] 07/06/20 05:19 Sodium 140 Potassium 4.0 Chloride 112 H Carbon Dioxide 21 BUN 5 L Creatinine 0.69 Glucose 81 Calcium 7.7 L (1) Acute pancreatitis Acute pancreatitis complication: unspecified Pancreatitis type: unspecified pancreatitis type Qualified Code(s): K85.90 - Acute pancreatitis without necrosis or infection, unspecified
[2020-07-06] MEDS: MIRTAZAPINE TAB 15 MG TAB PO SCH (20:00)
[2020-07-06] MEDS: DOXAZOSIN MESYLATE 1 MG TAB PO SCH (20:00)
[2020-07-06] MEDS: cefTRIAXone SODIUM 2,000 MG in DEXTROSE 5% 50 ML IV SCH (22:29)
[2020-07-07] MEDS: ONDANSETRON INJ 2 MG/ML 2 ML VIAL IV PRN (07:41)
[2020-07-07] MEDS: LACTOBACILLUS ACIDOPHILUS (FLORANEX) TAB PO SCH ×2 (07:42→12:57)
[2020-07-07] MEDS: LORATADINE 10 MG TAB PO SCH (07:43)
[2020-07-07] MEDS: BuPROPion XL 300 MG TABCR PO SCH (07:43)
[2020-07-07] MEDS: lamoTRIgine 100 MG TAB PO SCH (07:43)
[2020-07-07] MEDS: PANTOprazole 40 MG TAB PO SCH (07:43)
[2020-07-07] MEDS: BusPIRone 15 MG TAB PO SCH ×2 (07:44→12:58)
[2020-07-07] MEDS: SERTRALINE HCL 100 MG TABLET PO SCH (07:44)
[2020-07-07] MEDS: FLUTICASONE PROPIONATE NA SPR 16 GM BTL SCH (07:44)
[2020-07-07] MEDS: ATOMOXETINE HCL 10 MG CAPSULE PO SCH (08:31)
--- NOTE | 2020-07-07 14:01 | Hospitalist Progress Note ---
Date of Service July 07, 2020 Assessment & Plan (1) Acute pancreatitis: Elevated lipase--unclear etiology DD: Viral etiology, EtOH, autoimmune, Mass, other --CT abdomen not suggestive of acute pancreatitis --MRCP: No biliary ductal dilatation. No common bile duct calculi. Normal course and caliber of the main pancreatic duct. Unremarkable appearance of the pancreas on unenhanced exam. Gallbladder distention which is unchanged since prior CT. No pericholecystic infiltration or fluid. --Appreciate GI input --Advance diet as tolerated --Plan for EGD/EUS in 4 weeks as outpatient --Received IV fluids --Tolerated low-fat diet --Continue PPI --Needs follow-up with GI as outpatient for EGD (2) Abnormal urinalysis: Urine Culture: Mixed probable skin rosalia CT suggested cystitis. Received IV ceftriaxone for 3 days (3) DVT prophylaxis: SCD's. Ambulate. (4) Discharge planning issues: Plan to discharge home today Medical follow-up with Dr. Arellano. Admission and Anticipated Discharge Date Admission Date: July 04, 2020 Subjective Patient is seen and examined at bedside Chronic nausea--unchanged No new complaints Tolerated low-fat diet Denies any abdominal pain Also denies chest pain, shortness of breath, dysuria, hematuria Eager to get discharged Review of Systems Review of Systems: All systems reviewed & are unremarkable except as noted in HPI & below Physical Exam Physical Exam: Physical Exam: Vitals signs as noted above General Appearance:Moderately built and nourished, no apparent distress Head: normocephalic, Atraumatic Eyes: normal inspection, EOMI Neck: supple, Trachea midline Respiratory/Chest: Normal breath sounds, CTA, No accessory muscle use Cardiovascular: S1, S2, No murmur Abdomen/GI:Soft, non tender, Bowel sounds present Extremities/Musculoskelatal:normal inspection, no edema Neurologic/Psych:AAOX3, grossly no focal neurological deficits Skin: normal color, warm Results & Data Results & Data ([facility]) Vital Signs (Past 12 Hours) Vital Signs Temp Pulse Resp BP Pulse Ox 07/07/20 07:18 36.9 C 77 16 144/82 H 94 (1) Acute pancreatitis Acute pancreatitis complication: unspecified Pancreatitis type: unspecified pancreatitis type Qualified Code(s): K85.90 - Acute pancreatitis without necrosis or infection, unspecified
--- NOTE | 2020-07-07 14:09 | Discharge Summary ---
Date of Service July 07, 2020 Admission HPI Per Admitting Provider CHIEF COMPLAINT: Nausea, abdominal pain. HISTORY OF PRESENT ILLNESS: This is a 44-year-old female with past medical history significant for chronic kidney disease stage II, prehypertension, history of herpes labialis, attention deficit disorder, history of tobacco disorder, history of daytime somnolence, history of bipolar disorder, presents with nausea and abdominal pain. The patient says she woke up today with headaches, nausea and has some abdominal discomfort in the epigastric region and body aches and chills. She had 1 episode of diarrhea. Because of ongoing symptoms, she came to the ER. Denies any fever, chills. No shortness of breath, no chest pain. No earache, no runny nose, no sore throat. No loss of sense of smell or taste. No rash seen. Was nauseous, but no vomiting. No burning micturition, no hematuria. No swelling in the legs. The patient says she went to [employer] last Saturday. There were lot of people, but denies any exposure to sick patients. The patient's labs are all fine except lipase elevated at 1752 and urinalysis shows trace leukocyte esterase and +2 bacteria. The patient is afebrile and hemodynamically stable in the ER. Admission Exam Per Admitting Provider PHYSICAL EXAMINATION: GENERAL: The patient is obese, not in acute distress. VITAL SIGNS: Temperature 37.3, pulse 70, respiratory rate 20, blood pressure 121/71, oxygen 98% on room air. HEENT: Pupils equal, round, and reactive to light. Oral mucosa moist. NECK: No JVD seen. No neck masses seen. Supple. CARDIOVASCULAR SYSTEM: S1, S2 heard. Regular rate and rhythm. No murmur, no gallop. RESPIRATORY SYSTEM: Normal AP diameter. No accessory muscle use. No wheezing, no crackles. ABDOMEN: Soft, bowel sounds present. Mild epigastric discomfort present. No distention seen. CENTRAL NERVOUS SYSTEM: Cranial nerves II-XII grossly intact. Nonfocal. EXTREMITIES: No edema, no erythema. Principal Diagnosis Acute pancreatitis Alcohol use Discharge Data Allergies Allergy/AdvReac Type Severity Reaction Status Date / Time morphine Allergy Unknown Hallucinati Verified 07/04/20 20:44 ng Consultations 07/04/20 20:47 ED Decision to Admit Stat 07/04/20 22:35 Consult Case Management - Discharge Planning Routine 07/05/20 08:00 Consult Gastroenterology Routine Procedures Performed --CT abdomen not suggestive of acute pancreatitis --MRCP: No biliary ductal dilatation. No common bile duct calculi. Normal course and caliber of the main pancreatic duct. Unremarkable appearance of the pancreas on unenhanced exam. Gallbladder distention which is unchanged since prior CT. No pericholecystic infiltration or fluid. Ordered Studies 07/04/20 22:01 CT abd pelvis IV con only Urgent 07/05/20 11:21 MR MRCP Urgent Hospital Course (1) Acute pancreatitis: Elevated lipase--unclear etiology DD: Viral etiology, EtOH, autoimmune, Mass, other --CT abdomen not suggestive of acute pancreatitis --MRCP: No biliary ductal dilatation. No common bile duct calculi. Normal course and caliber of the main pancreatic duct. Unremarkable appearance of the pancreas on unenhanced exam. Gallbladder distention which is unchanged since prior CT. No pericholecystic infiltration or fluid. --Appreciate GI input --Advance diet as tolerated --Plan for EGD/EUS in 4 weeks as outpatient --Received IV fluids --Tolerated low-fat diet --Continue PPI --Needs follow-up with GI as outpatient for EGD (2) Abnormal urinalysis: Urine Culture: Mixed probable skin rosalia CT suggested cystitis. Received IV ceftriaxone for 3 days (3) DVT prophylaxis: SCD's. Ambulate. (4) Discharge planning issues: Plan to discharge home today Medical follow-up with Dr. Arellano. Total Time Total Time Spent Total Time Spent (In Minutes): 37 minutes Total Time Includes: Examination of the Patient, Discharge Planning, Medication Reconciliation, Communication With Other Providers and Other Discharge Plan Discharge Items Patient Disposition: Home - Self-Care Reason For Visit: NAUSEA,HEADACHE Discharge Diagnosis: Acute pancreatitis Alcohol use Activity: Resume your previous activity Exercise/Sports: Gradually increase as tolerated Non-emergency contact: Primary Care Provider and Base Filler Call non-emergency contact if: you have any medication questions, your symptoms worsen, your pain is not controlled, your pain is worsening, your pain is unusual for you, your pain is concerning for you and you have a fever Follow-up/Referrals: Nisha Tinoco MD [Primary Care Provider] - 07/11/20 1:00 pm (Date & Time 07/11/2020 1:00 PM Provider Nisha Merrill MD Department Internal Medicine [facility] ) Diet: Low Fat Addtl Attending Provider Instructions: Follow-up with your primary care physician Dr. Joey Merrill on July 11, 2020 at 1 PM Follow-up with your denture finisher Dr. Trujillo in 4 weeks for endoscopy as outpatient Consider following up with your ENT doctor for further evaluation of your left ear if you have recurrence of pain as advised. Quit drinking alcohol as advised. Seek immediate medical attention if your symptoms reoccur or worsen Pending Studies at Discharge: No Stand-Alone Forms: My [facility], Work/School Release (Inpt), Smoking Cessation Medications and DC Order Prescriptions: New loratadine [Allergy Relief (loratadine)] 10 mg Tablet 10 mg PO QAM 7 Days Qty: 7 RF: 0 Continued omeprazole 20 mg capsule,delayed release(DR/EC) 40 mg PO QAM RF: 0 sertraline 100 mg tablet 100 mg PO QAM RF: 0 fluticasone propionate 50 mcg/actuation spray,suspension 2 spray Intranasal QAM PRN (Reason: Allergy Symptoms) RF: 0 bupropion HCl 300 mg tablet extended release 24 hr 300 mg PO QAM RF: 0 doxazosin 1 mg tablet 1 mg PO HS RF: 0 mirtazapine 15 mg tablet 15 mg PO HS RF: 0 lamotrigine 100 mg tablet 100 mg PO QAM RF: 0 buspirone 15 mg tablet 15 mg PO TID RF: 0 atomoxetine 10 mg capsule 10 mg PO QAM RF: 0 cyclobenzaprine 10 mg tablet 10 mg PO TID PRN (Reason: Muscle Spasm) RF: 0 Discharge Orders: Discharge Order (Routine); Ordered 07/07/20 Ordered By: Jarret Mena/Other Patient Handouts: Understanding Headache Pain Admission Data Admit Date/Time: 07/04/20 21:40 Attending Provider: Jarret Sol Admit Provider: Pierre Harrell Primary Care Provider: Nisha Tinoco Other Providers: Pierre Harrell ; Arun Arshad Jessica R. ; Georgina Adams ; Geeta Olivo ; Ran Urban ; Nery Ryan ; Brittany Gorman ; Riya Turner ; Raimundo Rowland ; Ra Woods ; Zenobia Whalen ; Lali Greer ; Palak Schumacher ; Tammy Ellison ; Brenda Trujillo Other Interventions: Discharge Summary Assessment (RN) Last Done: 07/07/20 14:37
== END 2020-07-07 15:38 | disposition home or self-care (01) | DRG 439 ==
LOC: ED 18:12 → SUATTDRO 21:40 → 3W 21:40

== ENCOUNTER 2025-06-21 17:55 | Observation (INO) ==
[2025-06-21] MEDS: SODIUM CHLORIDE 0.9% 500 ML IV ONE (18:19)
[2025-06-21 18:37] LABS: Hematocrit (blood only) 38.6 % (37.0-47.0); Hemoglobin 13.2 g/dl (12.0-16.0); Immature Granulocytes # (auto) 0.02 K/uL (0.01-0.20); Immature Granulocytes % (auto) 0.2 %; Mean Corpuscular Hemoglobin 30.8 pg (25.0-34.0); Mean Corpuscular Volume 90.2 fL (80.0-100.0); Platelet Count 184 K/uL (130-400); RDW Standard Deviation 39.8 fL (36.4-46.3); Red Blood Count 4.28 M/uL (4.20-5.40); White Blood Count 8.01 K/ul (4.8-10.8)
[2025-06-21 18:55] LABS: Alanine Aminotransferase 20.0 U/L (7-52); Albumin Globulin Ratio 1.7 (0.9-2); Alkaline Phosphatase 52.0 U/L (34-104); Anion Gap 9.0 (3-11); Bilirubin,Total 0.3 mg/dl (0.2-1.0); Blood Urea Nitrogen 8.0 mg/dl (6-23); Calcium 9.6 mg/dl (8.6-10.3); Carbon Dioxide 29.0 mmol/L (21-32); Chloride 101.0 mmol/L (98-107); Creatinine Clr Calc Pharmacy 74.1 ml/min; Globulin 2.6 gm/dl (2.5-4.0); Glucose 84.0 mg/dl (70-99(Fasting)); Lipase 23.0 U/L (11-82); Magnesium 1.8 mg/dl (1.7-2.4); Potassium 3.4 mmol/L (3.5-5.1); Sodium 139.0 mmol/L (136-145); Total Protein 6.9 gm/dl (6.0-8.3)
--- NOTE | 2025-06-21 19:06 | Emergency Department Note ---
Impression & Plan Chest pain, Upper back pain, Dyspnea on exertion, Hypertension ED Provider Note NAME: ALEJA BRAXTON AGE: 49 SEX: F : 1975 ARRIVES VIA: Walk-In INFORMANT: Patient ED PROVIDER(S): Carter Branham MD CHIEF COMPLAINT: chest/back pain, htn PLAN: Disposition: Admit MEDICAL DECISION MAKING: The patient is a pleasant 49-year-old woman with a past medical history of bipolar disorder, anxiety, depression, GERD, recent diagnosis of hypertension where she was seen by PCP office today and started on lisinopril in setting of having chest pain radiating between her shoulder blades on and off for the past several weeks. She reports she will feel nauseated and lightheaded. She denies any significant shortness of breath at rest but will feel short of breath with exertion. She has any fevers, chills, cough or congestion. Patient understands she had a abnormality on her EKG and was provided with a cardiology referral with appointment scheduled for this week. However due to worsening symptoms this evening presents for evaluation. On evaluation the patient is no distress, afebrile blood pressure initially as high 170/90s but improving with IV fluid hydration and IV APAP. Vital signs otherwise unremarkable. She appears clinically dry. She has mild reproducible anterior chest wall discomfort without discrete tenderness. EKG without overt acute ischemia. CXR negative for acute cardiopulmonary process per my personal preliminary review/interpretation. WBC, H/H and platelets within normal limits. Chemistry without metabolic acidosis. Electrolytes and LFTs unremarkable. High-sensitivity troponin 4.9, within normal limits. Lipase is not elevated. TSH within normal limits. CTA of the chest with dissection protocol was performed and was negative for acute aortic pathology, PE or acute process otherwise. Given the patient's newly elevated blood pressure in the setting of her waxing waning symptoms of chest pain with exertion, the patient does agree with plan for admission for further evaluation. Heart score is 4, moderate risk. Case was [facility] who will evaluate the patient for admission. Further management per admitting team. Triage Nursing notes reviewed and agree them. Prior/external medical records reviewed Vital Signs: reviewed Differential diagnosis: Cardiac ischemia, aortic dissection, pulmonary embolism, pneumothorax, pneumonia, pericarditis, myocarditis, esophageal rupture, GERD, cholecystitis, pancreatitis, musculoskeletal, as well as other pathologies. ER treatment provided: See below. Diagnostics interpreted by me: ECG: Normal sinus rhythm, 68 bpm, no ectopy, no overt ST elevation or depression, QTC 382, QRS 80 Cardiac Monitoring: An order for continuous cardiac monitoring was placed and demonstrated Normal sinus rhythm, 68 bpm, no ectopy. Laboratory studies: See below Imaging studies: See below Consultation(s): Dr. Stovall, [facility] hospitalist HPI: Per MDM. ROS: See above HPI for pertinent positives & negatives. A total of 10 systems reviewed and were otherwise negative. VITALS:See Below PHYSICAL EXAMINATION: GENERAL: Awake, alert, in no distress, BMI 31.4. HENT: Normocephalic, atraumatic. Oropharynx unremarkable. EYES: Normal conjunctiva. Sclera non-icteric. NECK: Supple. No nuchal rigidity. FROM. No JVD. RESPIRATORY: Clear to auscultation. CARDIAC: Regular rate, normal rhythm. Extremities warm and well perfused. Pulses equal. ABDOMEN: Soft, non-distended. No tenderness to palpation. No rebound or guarding. No masses. MUSCULOSKELETAL: Chest examination reveals mild reproducible discomfort without discrete tenderness. The back is symmetrical on inspection without obvious abnormality. There is no CVA tenderness to palpation. No joint edema. LOWER EXTREMITIES: Calves are equal size bilaterally and non-tender. No edema. No discoloration. NEURO: Normal sensorium. No sensory or motor deficits noted. SKIN: No rash or jaundice noted. Carter Branham MD Past Med/Surg History Problem List (Updated 06/22/25 @ 01:57 by Carter Branham MD) Hypertension (Acute) Dyspnea on exertion (Acute) Upper back pain (Acute) Chest pain (Acute) Serum lipase elevation Acute pancreatitis (Acute) Nausea (Acute) Bipolar disorder (Chronic) Anxiety (Chronic) Depression (Chronic) GERD (gastroesophageal reflux disease) (Chronic) Ankle pain, right (Chronic) Social History Smoking Status: Never smoker Cigarettes Per Day: 5; Second Hand Exposure: No; Do You Dip or Chew Tobacco: No; Hx Alcohol Use: Yes Hx Substance Use: No Preferred Language: Afghan Communication Ability: Effective 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 Beliefs That Will Affect Care: None marital status: single Current Living Situation: Family Current Living Situation Comment: son 17y/o current occupational status: unemployed Feels Safe at Home: Yes Assistive Devices: None Allergies Allergies Allergy/AdvReac Type Severity Reaction Status Date / Time morphine Allergy Unknown Hallucinati Verified 07/04/20 20:44 ng Home Meds Home Medications Medication Instructions Recorded Confirmed bupropion HCl 300 mg 24 hr tablet, 300 mg PO QAM 11/29/18 07/04/20 extended release fluticasone propionate 50 2 spray intranasal QAM PRN Allergy 11/29/18 07/04/20 mcg/actuation nasal Symptoms spray,suspension sertraline 100 mg tablet 100 mg PO QAM 11/29/18 07/04/20 omeprazole 20 mg capsule,delayed 40 mg PO QAM 03/29/19 07/04/20 release atomoxetine 10 mg capsule 10 mg PO QAM 07/04/20 07/04/20 buspirone 15 mg tablet 15 mg PO TID 07/04/20 07/04/20 cyclobenzaprine 10 mg tablet 10 mg PO TID PRN Muscle Spasm 07/04/20 07/04/20 doxazosin 1 mg tablet 1 mg PO HS 07/04/20 07/04/20 lamotrigine 100 mg tablet 100 mg PO QAM 07/04/20 07/04/20 mirtazapine 15 mg tablet 15 mg PO HS 07/04/20 07/04/20 Results & Data (ED) Vital Signs Vital Signs - 24 hr 06/21/25 18:05 06/21/25 18:15 06/21/25 18:15 Temperature 36.8 C Temperature Source Temporal Artery Scan Pulse Rate 75 Pulse Rate from SpO2 Sensor Pulse Rhythm Respiratory Rate 18 Respiratory Effort / Characteristics Non-Labored Spontaneous Non-Labored Spontaneous Respiratory Depth Normal Normal Blood Pressure 140/89 Blood Pressure Mean 106 Blood Pressure Position Sitting Pulse Oximetry 98 98 Oxygen Delivery Method Room Air Room Air Sepsis Recent Fever Within 48 Hours No Sepsis New/Unexplained Change in Mental Status No Sepsis Action Taken by Nursing No Action Required 06/21/25 18:15 06/21/25 18:30 06/21/25 18:30 Temperature Temperature Source Pulse Rate 64 74 74 Pulse Rate from SpO2 Sensor Pulse Rhythm Regular Respiratory Rate 20 Respiratory Effort / Characteristics Respiratory Depth Blood Pressure 134/83 Blood Pressure Mean 92 Blood Pressure Position Pulse Oximetry 98 97 Oxygen Delivery Method Room Air Sepsis Recent Fever Within 48 Hours Sepsis New/Unexplained Change in Mental Status Sepsis Action Taken by Nursing 06/21/25 19:00 06/21/25 20:15 06/21/25 20:54 Temperature Temperature Source Pulse Rate 75 73 Pulse Rate from SpO2 Sensor 70 74 Pulse Rhythm Respiratory Rate 21 16 21 Respiratory Effort / Characteristics Respiratory Depth Blood Pressure 179/94 H 132/82 143/80 H Blood Pressure Mean 151 98 101 Blood Pressure Position Pulse Oximetry 95 97 98 Oxygen Delivery Method Sepsis Recent Fever Within 48 Hours Sepsis New/Unexplained Change in Mental Status Sepsis Action Taken by Nursing 06/21/25 21:03 Temperature Temperature Source Pulse Rate 70 Pulse Rate from SpO2 Sensor 70 Pulse Rhythm Respiratory Rate 14 Respiratory Effort / Characteristics Respiratory Depth Blood Pressure 149/86 H Blood Pressure Mean 107 Blood Pressure Position Pulse Oximetry 95 Oxygen Delivery Method Room Air Sepsis Recent Fever Within 48 Hours Sepsis New/Unexplained Change in Mental Status Sepsis Action Taken by Nursing Laboratory Data Attestation: I reviewed the patient's lab results. 06/21/25 18:18 06/21/25 18:18 Lab Results 06/21/25 Range/Units 18:18 WBC 8.01 (4.8-10.8) K/ul RBC 4.28 (4.20-5.40) M/uL Hgb 13.2 (12.0-16.0) g/dl Hct 38.6 (37.0-47.0) % MCV 90.2 (80.0-100.0) fL MCH 30.8 (25.0-34.0) pg MCHC 34.2 (32.0-36.0) g/dL RDW Std Deviation 39.8 (36.4-46.3) fL RDW Coeff of Seth 12.1 (11.5-14.5) % Plt Count 184 (130-400) K/uL MPV 10.2 (9.4-12.4) fL Immature Gran % (Auto) 0.2 % Neut % (Auto) 69.5 % Lymph % (Auto) 20.1 % [place] % (Auto) 7.9 % Eos % (Auto) 1.7 % Baso % (Auto) 0.6 % Neut # (Auto) 5.56 (1.40-6.50) K/uL Lymph # (Auto) 1.61 (1.20-3.40) K/uL [place] # (Auto) 0.63 H (0.11-0.59) K/uL Eos # (Auto) 0.14 (0.00-0.50) K/uL Baso # (Auto) 0.05 (0.00-0.20) K/uL Immature Gran # (Auto) 0.02 (0.01-0.20) K/uL Sodium 139 (136-145) mmol/L Potassium 3.4 L (3.5-5.1) mmol/L Chloride 101 (98-107) mmol/L Carbon Dioxide 29 (21-32) mmol/L Anion Gap 9 (3-11) BUN 8 (6-23) mg/dl Creatinine 0.97 (0.6-1.2) mg/dl Est Cr Clr Drug Dosing 74.1 ml/min eGFR 70.75 BUN/Creatinine Ratio 8.2 L (10-20) Glucose 84 (70-99(Fasting)) mg/dl Calcium 9.6 (8.6-10.3) mg/dl Phosphorus 2.7 (2.5-4.9) mg/dl Magnesium 1.8 (1.7-2.4) mg/dl Total Bilirubin 0.3 (0.2-1.0) mg/dl AST 18 (13-39) U/L ALT 20 (7-52) U/L Alkaline Phosphatase 52 (34-104) U/L Troponin I High Sens 4.9 (0-14) pg/ml Total Protein 6.9 (6.0-8.3) gm/dl Albumin 4.3 (3.4-5.0) gm/dl Globulin 2.6 (2.5-4.0) gm/dl Albumin/Globulin Ratio 1.7 (0.9-2) Lipase 23 (11-82) U/L TSH 2.254 (0.300-4.500) uIu/ml Administered Medications Discontinued Medications Sodium Chloride (Nss) 500 mls @ 999 mls/hr IV .Q31M ONE Stop: 06/21/25 18:40 Last Infusion: 06/21/25 18:51 Dose: Infused Documented By: Admin: 06/21/25 18:19 Dose: 999 mls/hr Documented By: JOSS Acetaminophen (Ofirmev) 1,000 mg in 100 mls @ 400 mls/hr IV NOW STA Stop: 06/21/25 19:15 Last Infusion: 06/21/25 19:41 Dose: Infused Documented By: Admin: 06/21/25 19:20 Dose: 400 mls/hr Documented By: MYRON Ioversol (Optiray 320 125ml) 115 ml IV ONCE ONE Stop: 06/21/25 19:26 Last Admin: 06/21/25 19:25 Dose: 115 ml Documented By: HUGO Imaging Data Radiologist's Impression: Chest X-Ray 06/21/25 18:10 EXAM: Portable AP chest radiograph TECHNIQUE: AP portable radiograph of the chest was obtained. INDICATION: Shortness of breath Comparison: Chest radiograph July 04, 2020 FINDINGS: LINES and TUBES: None CARDIOVASCULAR: Cardiac silhouette is stable enlarged in size. LUNGS/PLEURA: Mild pulmonary vascular congestion centrally. No focal consolidation identified. Lingular subsegmental atelectasis versus scarring. No significant pleural fluid. No discernible pneumothorax. OSSEOUS/OTHER: No displaced acute osseous process identified. Scoliosis. IMPRESSION: Stable enlarged cardiac silhouette and unchanged mild central pulmonary vascular congestion. Electronically signed by Elvis Cai 06-21-2025 7:06 PM Chest CTA 06/21/25 18:54 EXAMINATION: CT angio chest dissection without/with contrast CLINICAL HISTORY: Chest, back pain, hypertension TECHNIQUE: Contiguous axial images were obtained through the chest without and with the use of intravenous contrast. Sagittal and coronal reformations are supplied. FINDINGS: Allowing for motion artifact, the left-sided aorta is well opacified and measures approximately 2.8 x 2.7 cm at the level of the main pulmonary artery. The descending aorta measures 2.0 cm at this level. No intimal flap in the aorta lumen or CT features of dissection. The descending thoracic aorta has a normal appearance. Appropriate takeoff of the 3 great vessels from the aortic arch is noted. Heart size is normal. No pleural or pericardial effusion. No hyperdense material on the noncontrast enhanced images. No adenopathy in the chest. Trachea and mainstem bronchi are patent. Thyroid is normal in size. Limited visualization of the upper abdomen shows no acute abnormality. Aorta is normal in size. Moderate thoracic scoliosis convex to the right Chest is well-expanded with no acute abnormality. IMPRESSION: No CT evidence of an aortic dissection or acute abnormality in the chest. Electronically signed by Brianne Triana 06-21-2025 7:46 PM Discharge Plan Visit Data Chief Complaint: Cardiac Assessment Stated Complaint: CHEST PAINS ED Provider: Carter Branham Discharge Problem: Chest pain, Upper back pain, Dyspnea on exertion, Hypertension Patient Disposition: Admitted As Inpatient Condition: Fair Discharge Instructions Interventions: ED Discharge Assessment Last Done: 06/22/25 01:02 Discharge Problem: Chest pain Qualifiers: Chest pain type: unspecified Qualified Code(s): R07.9 - Chest pain, unspecified Hypertension Qualifiers: Hypertension type: unspecified Qualified Code(s): I10 - Essential (primary) hypertension
[2025-06-21 19:12] LABS: Thyroid Stimulating Hormone 2.254 uIu/ml (0.300-4.500)
[2025-06-21] MEDS: ACETAMINOPHEN 1,000 MG/100 ML VIAL IV STA (19:20)
[2025-06-21] MEDS: OPTIRAY 320 125ml IV ONE (19:25)
--- NOTE | 2025-06-21 19:46 | CT Scan Report ---
EXAMINATION: CT angio chest dissection without/with contrast CLINICAL HISTORY: Chest, back pain, hypertension TECHNIQUE: Contiguous axial images were obtained through the chest without and with the use of intravenous contrast. Sagittal and coronal reformations are supplied. FINDINGS: Allowing for motion artifact, the left-sided aorta is well opacified and measures approximately 2.8 x 2.7 cm at the level of the main pulmonary artery. The descending aorta measures 2.0 cm at this level. No intimal flap in the aorta lumen or CT features of dissection. The descending thoracic aorta has a normal appearance. Appropriate takeoff of the 3 great vessels from the aortic arch is noted. Heart size is normal. No pleural or pericardial effusion. No hyperdense material on the noncontrast enhanced images. No adenopathy in the chest. Trachea and mainstem bronchi are patent. Thyroid is normal in size. Limited visualization of the upper abdomen shows no acute abnormality. Aorta is normal in size. Moderate thoracic scoliosis convex to the right Chest is well-expanded with no acute abnormality. IMPRESSION: No CT evidence of an aortic dissection or acute abnormality in the chest. Electronically signed by Brianne Triana 06-21-2025 7:46 PM
--- NOTE | 2025-06-21 22:12 | History & Physical Report ---
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 (3) GERD (gastroesophageal reflux disease): Plan: Continue PPI (4) Hypertension: Plan: Observe blood pressure closely Patient apparently started on lisinopril in the office Admission and Anticipated Discharge Date Admission Date: Patient does have reproducible chest wall pain but with risk factors and elevated heart score will admit for observation, ACS rule out and probable stress testing Patient is a full code Total 75 minutes spent in the care plan for this patient History of Present Illness Chief Complaint: CP Primary Care Provider: Nisha Arellano MD Daria Renteria is a pleasant 49-year-old woman with a PMHX of bipolar disorder, anxiety, depression, GERD, and hypertension (taken off meds). She was seen by her PCP office today and started on lisinopril foe elevated BP, She has been having chest pains radiating between her shoulder blades and left arm on and off for the past several weeks. She reports she will feel nauseated and lightheaded. She has fatigue and has been having ROBB. She denies cough, fevers, chills, ST or congestion. Patient was referred to cardiology today by her PCP. However due to worsening symptoms she presents to the ED this evening for evaluation. Initially her blood pressure was high at 170/90s but improved with IV fluid hydration and IV APAP. In the ED she has mild reproducible anterior chest wall discomfort without discrete tenderness. Her EKG was without significant change from prior. CXR was clear. CT of the chest with dissection protocol was performed and was negative for acute aortic pathology, PE or acute process otherwise.. High-sensitivity troponin was normal at 4.9. Lipase was not elevated. Heart score is 4, moderate risk. Allergies Allergy/AdvReac Type Severity Reaction Status Date / Time morphine Allergy Unknown Hallucinati Verified 07/04/20 20:44 ng Home Medications Medication Instructions Recorded Confirmed Type bupropion HCl 300 mg 24 hr tablet, 300 mg PO QAM 11/29/18 07/04/20 History extended release fluticasone propionate 50 2 spray intranasal QAM PRN Allergy 11/29/18 07/04/20 History mcg/actuation nasal Symptoms spray,suspension sertraline 100 mg tablet 100 mg PO QAM 11/29/18 07/04/20 History omeprazole 20 mg capsule,delayed 40 mg PO QAM 03/29/19 07/04/20 History release atomoxetine 10 mg capsule 10 mg PO QAM 07/04/20 07/04/20 History buspirone 15 mg tablet 15 mg PO TID 07/04/20 07/04/20 History cyclobenzaprine 10 mg tablet 10 mg PO TID PRN Muscle Spasm 07/04/20 07/04/20 History doxazosin 1 mg tablet 1 mg PO HS 07/04/20 07/04/20 History lamotrigine 100 mg tablet 100 mg PO QAM 07/04/20 07/04/20 History mirtazapine 15 mg tablet 15 mg PO HS 07/04/20 07/04/20 History Past Med/Surg History Problem List (Updated 06/21/25 @ 22:10 by Glen Stovall DO) Chest pain Serum lipase elevation Acute pancreatitis (Acute) Nausea (Acute) Bipolar disorder (Chronic) Anxiety (Chronic) Depression (Chronic) GERD (gastroesophageal reflux disease) (Chronic) Ankle pain, right (Chronic) Social History Smoking Status: Never smoker Cigarettes Per Day: 5; Second Hand Exposure: No; Do You Dip or Chew Tobacco: No; Hx Alcohol Use: Yes Hx Substance Use: No Preferred Language: Panamanian Communication Ability: Effective 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 chest pain, no palpitations, no orthopnea, no dependent edema GI- no nausea, no vomiting, no diarrhea, no melena, no hematochezia - no dysuria, no hematuria Musculoskeletal- no arthralgias, no myalgias Derm- no rashes, no new skin lesions, no changing skin lesions Hematologic- no unusual bruising, no unusual bleeding Lymphatics- no adenopathy Endocrine- no polyuria or polydipsia; no heat or cold intolerance Neuro- no headaches, no focal neurologic symptoms Psych- no anxiety, no depression Physical Exam Physical Exam: General- adult female seen at bedside Head- atraumatic Eyes- PERRL, EOMI, anicteric ENT- oropharynx clear Neck- supple, no JVD, no adenopathy, no thyromegaly; carotids +2/2, no bruits appreciated Lungs- clear to auscultation and percussion Heart- regular rhythm; no murmur, no gallop, no rub appreciated Abdomen- normal bowel sounds, soft, nontender, no masses or hepatosplenomegaly Extremities- no pretibial edema, no calf tenderness; peripheral pulses intact M/S: Does have palpable chest wall pain Neuro- alert, oriented x 3; PERRL, EOMI; no facial palsy; no dysarthria; Skin- warm & dry Results & Data Results & Data Vital Signs (Past 12 Hours) Vital Signs Temp Pulse Resp BP Pulse Ox O2 Del Method 06/21/25 21:03 70 14 149/86 H 95 Room Air 06/21/25 20:54 73 21 143/80 H 98 06/21/25 20:15 16 132/82 97 06/21/25 19:00 75 21 179/94 H 95 06/21/25 18:30 74 20 134/83 97 06/21/25 18:30 74 06/21/25 18:15 64 98 Room Air 06/21/25 18:15 98 Room Air 06/21/25 18:05 36.8 C 75 18 140/89 98 Room Air Diagnostic Findings Laboratory Results WBC 8.01 K/ul (4.8-10.8) 06/21/25 18:18 RBC 4.28 M/uL (4.20-5.40) 06/21/25 18:18 Hgb 13.2 g/dl (12.0-16.0) 06/21/25 18:18 Hct 38.6 % (37.0-47.0) 06/21/25 18:18 MCV 90.2 fL (80.0-100.0) 06/21/25 18:18 MCH 30.8 pg (25.0-34.0) 06/21/25 18:18 MCHC 34.2 g/dL (32.0-36.0) 06/21/25 18:18 RDW Std Deviation 39.8 fL (36.4-46.3) 06/21/25 18:18 RDW Coeff of Seth 12.1 % (11.5-14.5) 06/21/25 18:18 Plt Count 184 K/uL (130-400) 06/21/25 18:18 MPV 10.2 fL (9.4-12.4) 06/21/25 18:18 Immature Gran % (Auto) 0.2 % 06/21/25 18:18 Neut % (Auto) 69.5 % 06/21/25 18:18 Lymph % (Auto) 20.1 % 06/21/25 18:18 [place] % (Auto) 7.9 % 06/21/25 18:18 Eos % (Auto) 1.7 % 06/21/25 18:18 Baso % (Auto) 0.6 % 06/21/25 18:18 Neut # (Auto) 5.56 K/uL (1.40-6.50) 06/21/25 18:18 Lymph # (Auto) 1.61 K/uL (1.20-3.40) 06/21/25 18:18 [place] # (Auto) 0.63 K/uL (0.11-0.59) H 06/21/25 18:18 Eos # (Auto) 0.14 K/uL (0.00-0.50) 06/21/25 18:18 Baso # (Auto) 0.05 K/uL (0.00-0.20) 06/21/25 18:18 Immature Gran # (Auto) 0.02 K/uL (0.01-0.20) 06/21/25 18:18 Sodium 139 mmol/L (136-145) 06/21/25 18:18 Potassium 3.4 mmol/L (3.5-5.1) L 06/21/25 18:18 Chloride 101 mmol/L (98-107) 06/21/25 18:18 Carbon Dioxide 29 mmol/L (21-32) 06/21/25 18:18 Anion Gap 9 (3-11) 06/21/25 18:18 BUN 8 mg/dl (6-23) 06/21/25 18:18 Creatinine 0.97 mg/dl (0.6-1.2) 06/21/25 18:18 Est Cr Clr Drug Dosing 74.1 ml/min 06/21/25 18:18 eGFR 70.75 06/21/25 18:18 BUN/Creatinine Ratio 8.2 (10-20) L 06/21/25 18:18 Glucose 84 mg/dl (70-99(Fasting)) 06/21/25 18:18 Calcium 9.6 mg/dl (8.6-10.3) 06/21/25 18:18 Phosphorus 2.7 mg/dl (2.5-4.9) 06/21/25 18:18 Magnesium 1.8 mg/dl (1.7-2.4) 06/21/25 18:18 Total Bilirubin 0.3 mg/dl (0.2-1.0) 06/21/25 18:18 AST 18 U/L (13-39) 06/21/25 18:18 ALT 20 U/L (7-52) 06/21/25 18:18 Alkaline Phosphatase 52 U/L (34-104) 06/21/25 18:18 Troponin I High Sens 4.9 pg/ml (0-14) 06/21/25 18:18 Total Protein 6.9 gm/dl (6.0-8.3) 06/21/25 18:18 Albumin 4.3 gm/dl (3.4-5.0) 06/21/25 18:18 Globulin 2.6 gm/dl (2.5-4.0) 06/21/25 18:18 Albumin/Globulin Ratio 1.7 (0.9-2) 06/21/25 18:18 Lipase 23 U/L (11-82) 06/21/25 18:18 TSH 2.254 uIu/ml (0.300-4.500) 06/21/25 18:18 Impressions Chest X-Ray 06/21/25 18:10 EXAM: Portable AP chest radiograph TECHNIQUE: AP portable radiograph of the chest was obtained. INDICATION: Shortness of breath Comparison: Chest radiograph July 04, 2020 FINDINGS: LINES and TUBES: None CARDIOVASCULAR: Cardiac silhouette is stable enlarged in size. LUNGS/PLEURA: Mild pulmonary vascular congestion centrally. No focal consolidation identified. Lingular subsegmental atelectasis versus scarring. No significant pleural fluid. No discernible pneumothorax. OSSEOUS/OTHER: No displaced acute osseous process identified. Scoliosis. IMPRESSION: Stable enlarged cardiac silhouette and unchanged mild central pulmonary vascular congestion. Electronically signed by Elvis Cia 06-21-2025 7:06 PM Chest CTA 06/21/25 18:54 EXAMINATION: CT angio chest dissection without/with contrast CLINICAL HISTORY: Chest, back pain, hypertension TECHNIQUE: Contiguous axial images were obtained through the chest without and with the use of intravenous contrast. Sagittal and coronal reformations are supplied. FINDINGS: Allowing for motion artifact, the left-sided aorta is well opacified and measures approximately 2.8 x 2.7 cm at the level of the main pulmonary artery. The descending aorta measures 2.0 cm at this level. No intimal flap in the aorta lumen or CT features of dissection. The descending thoracic aorta has a normal appearance. Appropriate takeoff of the 3 great vessels from the aortic arch is noted. Heart size is normal. No pleural or pericardial effusion. No hyperdense material on the noncontrast enhanced images. No adenopathy in the chest. Trachea and mainstem bronchi are patent. Thyroid is normal in size. Limited visualization of the upper abdomen shows no acute abnormality. Aorta is normal in size. Moderate thoracic scoliosis convex to the right Chest is well-expanded with no acute abnormality. IMPRESSION: No CT evidence of an aortic dissection or acute abnormality in the chest. Electronically signed by Brianne Triana 06-21-2025 7:46 PM Code Status & VTE Plan VTE Prophylaxis Plan VTE Prophylaxis will be ordered: No Reason for no VTE drug order: Treatment not indicated
[2025-06-22] MEDS ORDERED: ALUMINUM/MAGNESIUM SUSP 30 ML UDC PO PRN (00:48)
[2025-06-22] MEDS ORDERED: MELATONIN 3 MG TAB PO PRN (00:48)
[2025-06-22] MEDS ORDERED: NITROGLYCERIN SL 0.4 MG/TAB TAB SL PRN (00:48)
[2025-06-22] MEDS ORDERED: POLYETHYLENE (MIRALAX) 17 GM PACK PO PRN (00:48)
[2025-06-22] MEDS ORDERED: ONDANSETRON INJ 2 MG/ML 2 ML VIAL IV PRN (00:48)
[2025-06-22] MEDS ORDERED: ACETAMINOPHEN 325 MG TAB PO PRN (00:48)
[2025-06-22 04:10] LABS: Hematocrit (blood only) 36.2 % (37.0-47.0); Hemoglobin 12.1 g/dl (12.0-16.0); Mean Corpuscular Hemoglobin 30.6 pg (25.0-34.0); Mean Corpuscular Volume 91.4 fL (80.0-100.0); Platelet Count 141 K/uL (130-400); RDW Standard Deviation 41.2 fL (36.4-46.3); Red Blood Count 3.96 M/uL (4.20-5.40); White Blood Count 5.33 K/ul (4.8-10.8)
[2025-06-22 04:24] LABS: Anion Gap 3.0 (3-11); Blood Urea Nitrogen 7.0 mg/dl (6-23); Calcium 8.9 mg/dl (8.6-10.3); Carbon Dioxide 31.0 mmol/L (21-32); Chloride 104.0 mmol/L (98-107); Creatinine Clr Calc Pharmacy 74.9 ml/min; Glucose 118.0 mg/dl (70-99(Fasting)); Magnesium 2.0 mg/dl (1.7-2.4); Potassium 3.4 mmol/L (3.5-5.1); Sodium 138.0 mmol/L (136-145)
[2025-06-22 06:40] VITALS: PULSE 63; O2SAT 96
--- NOTE | 2025-06-22 10:34 | Cardiology Consultation ---
Date of Consultation June 22, 2025 Assessment & Plan (1) Chest pain at rest: (2) Dyspnea on exertion: (3) Hypertension: (4) Family history of ischemic heart disease: Plan 49-year-old female admitted to [facility] on June 21, 2025 with atypical chest discomfort. Risk factors include hypertension, family history of premature CAD, prediabetes, inactivity, and obesity. EKG without acute change. High-sensitivity troponin negative. Imaging including chest x- ray and CTA of the chest without acute abnormality. Telemetry benign. Preliminary stress echocardiography notable for hypertensive blood pressure response though without evidence of exercise-induced myocardial ischemia. Blood pressure significantly improved without additional antihypertensive therapies; question rebound hypertension from recently prescribed and discontinued clonidine for anxiety. Recommend avoiding clonidine, and other AV deshaun blockers, noting mild resting bradycardia. Risk factor and lifestyle modification. Outpatient follow-up with PCP. Supervising Physician Co-Signing Physician Notes Patient seen and examined. Past medical history, surgical history, social history and family history have been reviewed. The medical record and all the above studies have been reviewed. Case DW ETIENNE including management. Chest Pain - PR R/O HTN - suboptimal -> better ROBB - multifactorial including obesity, dietary noncompliance, HTN leidy=ress ECHO negative for ischemia adjust anti-HTN meds keeping systolic BP between 100-140 mmHg salt restriction counseling medical management risk factor modification stable from cardiac standpoint for discharge f/u with cardiology as OP History of Present Illness Reason for Consultation: Chest pain Requesting Physician: [facility] Hospitalist Service, Dr. Stovall Attending Physician: [facility] Hospitalist Service, Dr. Jarret Sol MD History of Present Illness Daria Renteria is a 49-year-old female who presented to the [facility] ER on June 21, 2025 with chest discomfort. Patient describes midsternal chest pressure radiating under the breasts and around the back to the shoulder blades over the past couple weeks. Patient chalked up the discomfort to anxiety though became more concerned after evaluation by PCP yesterday was notable for hypertension (168/100) leading to initiation of lisinopril. Patient also notes some fatigue as well as exertional dyspnea. Blood pressure on presentation was as high as 179/94. EKG technically limited though without acute ST segment change. High-sensitivity troponin negative. Imaging of the chest initially included chest x-ray revealing stable enlarged cardiac silhouette, unchanged mild central pulmonary vascular congestion. Chest CTA negative for aortic dissection or acute abnormality. Blood pressure significantly improved, without additional antihypertensive therapies added to active medication list. If/when ongoing hypertension observed would reconsider ACEI/ARB noting mild hypokalemia on presentation. Patient recently prescribed clonidine for anxiety, self discontinued about two weeks ago due to poor tolerance. Problem list: Hypertension Bipolar disorder, anxiety and depression Chart history of attention deficit disorder GERD Gout Right ankle fusion surgery Prior appendectomy. Family History: Positive for CAD in her maternal grandfather who with an PR after having to prior open heart procedures. Maternal aunt passed with an PR at 49. Mother with breast cancer. Social History: Non-smoker. No significant alcohol. Medical marijuana card. Moved from [place], [place] to [place] with her son. Parents, alive, from [place]. Allergies Allergy/AdvReac Type Severity Reaction Status Date / Time morphine Allergy Unknown Hallucinati Verified 07/04/20 20:44 ng Home Medications Medication Instructions Recorded Confirmed Type bupropion HCl 150 mg 24 hr tablet, 450 mg PO DAILY 06/22/25 06/22/25 History extended release divalproex 500 mg tablet,extended 500 mg PO UD 06/22/25 06/22/25 History release 24 hr (Depakote ER) doxepin 10 mg capsule 10 mg PO HS 06/22/25 06/22/25 History gabapentin 100 mg capsule 200 mg PO BID 06/22/25 06/22/25 History lisinopril 5 mg tablet 5 mg PO DAILY #30 tabs 06/22/25 Rx metformin 500 mg tablet,extended 500 mg PO DAILY 06/22/25 06/22/25 History release 24 hr pantoprazole 40 mg tablet,delayed 40 mg PO DAILY 06/22/25 06/22/25 History release Patient History Social History Smoking Status: Never smoker Cigarettes Per Day: 5; Second Hand Exposure: No; Do You Dip or Chew Tobacco: No; Hx Alcohol Use: No Hx Substance Use: Yes Preferred Language: Urdu Communication Ability: Effective 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 HEENT: No history of amaurosis fugax. Pulmonary: No history of PE. Cardiac: See above. GI/Abd: GERD. No recent vomiting or diarrhea. Hematologic: No abnormal bleeding. Neurologic: No history of TIA/CVA, or seizure disorder. Endocrine: Prediabetes. Complete Review of Systems is as stated above, negative, or noncontributory Physical Exam Physical Exam: General: A&Ox3. NAD. HENT: Normocephalic. Atraumatic. Eyes: PER. Conjunctiva pink, sclera clear. Neck: No carotid bruits. No JVD. Heart: RRR, 60 bpm. No murmur. Lungs: Clear to auscultation. Abdomen: +BS. No organomegaly. Extremities: No clubbing, cyanosis, or edema. Limited neurological examination is without focal deficits. Pulses: Posterior tibial=2/4. Results & Data Vital Signs (Past 12 Hours) Vital Signs Temp Pulse Pulse Resp BP Pulse Ox O2 Del Method 06/22/25 06:40 36.7 C 63 16 119/79 96 Room Air 06/22/25 03:00 55 L 16 137/80 97 Room Air 06/22/25 02:00 64 16 165/79 H 97 Room Air 06/22/25 01:00 70 16 104/54 L 95 Room Air 06/22/25 00:48 65 17 116/64 96 Room Air 06/22/25 00:48 65 96 Room Air 06/22/25 00:00 74 20 116/64 96 Room Air 06/21/25 23:00 69 16 138/79 98 Room Air 06/21/25 22:34 74 17 135/87 97 Room Air Laboratory Results Cardiac Enzymes 06/21/25 Range/Units 18:18 AST 18 (13-39) U/L Troponin I High Sens 4.9 (0-14) pg/ml CBC 06/21/25 06/22/25 Range/Units 18:18 03:55 WBC 8.01 5.33 (4.8-10.8) K/ul RBC 4.28 3.96 L (4.20-5.40) M/uL Hgb 13.2 12.1 (12.0-16.0) g/dl Hct 38.6 36.2 L (37.0-47.0) % Plt Count 184 141 (130-400) K/uL Neut # (Auto) 5.56 (1.40-6.50) K/uL Lymph # (Auto) 1.61 (1.20-3.40) K/uL [place] # (Auto) 0.63 H (0.11-0.59) K/uL Eos # (Auto) 0.14 (0.00-0.50) K/uL Baso # (Auto) 0.05 (0.00-0.20) K/uL Comprehensive Metabolic Panel 06/21/25 06/22/25 Range/Units 18:18 03:55 Sodium 139 138 (136-145) mmol/L Potassium 3.4 L 3.4 L (3.5-5.1) mmol/L Chloride 101 104 (98-107) mmol/L Carbon Dioxide 29 31 (21-32) mmol/L BUN 8 7 (6-23) mg/dl Creatinine 0.97 0.96 (0.6-1.2) mg/dl Glucose 84 118 H (70-99(Fasting)) mg/dl Calcium 9.6 8.9 (8.6-10.3) mg/dl AST 18 (13-39) U/L ALT 20 (7-52) U/L Alkaline Phosphatase 52 (34-104) U/L Total Protein 6.9 (6.0-8.3) gm/dl Albumin 4.3 (3.4-5.0) gm/dl Intake and Output 06/21/25 06/22/25 06/22/25 22:59 06:59 14:59 Intake Total 600 / 600 Balance 600 / 600 Intake: IV 600 / 600 Acetaminophen 1,000 mg In 100 100 / 100 ml @ 400 mls/hr IV NOW STA Rx#: [id number] Sodium Chloride 0.9% 500 ml @ 500 / 500 999 mls/hr IV .Q31M ONE Rx#: [id number] Other: # Unmeasured Voids 1 Weight 85.6 kg 85.6 kg Weight Measurement Method Chair Scale Built in [facility] Diagnostic Findings Telemetry: Sinus/sinus bradycardia 06/22/25 Interpretation Summary This was a normal stress echocardiogram. No echocardiographic or EKG evidence of myocardial ischemia. Resting Study: Left ventricular systolic function is normal. Left Ventricular Ejection Fraction = 55-60%. There is mild mitral regurgitation. There is mild tricuspid regurgitation. Stress Study: This was a normal stress echocardiogram. No regional wall motion abnormalities noted. Resting wall motion: Normal. Stress wall motion: Appropriate increase in Left ventricular systolic function and decrease in cavity size. No stress induced segmental wall motion abnormalities. The left ventricular ejection fraction increases normally with stress. The left ventricular end-systolic cavity size reduces post-stress (normal response). The left ventricular wall motion with stress is normal. Maximum heart rate was 100 % of maximum age-predicted heart rate. Maximum exercise MET level achieved was '4.6' METS The stress ECG response was normal There was no new ST segment depression. The study was technically good with many images being of high quality. The stress portion of this study was personally supervised by the undersigned interpreting physician. No echocardiographic or EKG evidence of myocardial ischemia. Stress Results Protocol: CA^STECH Maximum Predicted HR: 169 bpm Target HR: 144 bpm % Maximum Predicted HR: 100 % Stress Duration: 3:00 mm:ss * Maximum Stress HR: 169 bpm * METS: 4 Procedure Details 96587: Transthoracic stress echocardiography with 2D imaging during rest and cardiovascular stress test, including continuous ECG monitoring with supervision and interpretation. A contrast injection of Definity was performed to improve assessment of LV function. Contrast was injected into an intravenous site in the left arm. One vial of Definity ultrasound contrast was diluted in normal saline to a total volume of 10 ml. A total of '4' ml of solution was administered during imaging. Lot # [id number] of Definity utilized for procedure. Expiration date . The attending nurse who injected the contrast agent was CESAR RIDER. The study was technically good with many images being of high quality. Stress Parameters The stress ECG response was normal. There was no new ST segment depression. The stress portion of this study was personally supervised by the undersigned interpreting physician. Rest heart rate was '71' BPM. Rest blood pressure was '135/90'. Maximum heart rate achieved was 169 bpm. Maximum heart rate was 100 % of maximum age-predicted heart rate. Maximum blood pressure was '185/71'. Total exercise time was '03:00'. Maximum exercise MET level achieved was '4.6' METS. Maximum treadmill speed was '1.70' miles per hour. Maximum treadmill elevation was '10'% grade. The patient exhibited fatigue during exercise. Left Ventricle The left ventricle is normal in size. There is mild concentric left ventricular hypertrophy. The left ventricular wall motion is normal. The left ventricular ejection fraction increases normally with stress. The left ventricular end-systolic cavity size reduces post-stress (normal response). The left ventricular wall motion with stress is normal. No regional wall motion abnormalities noted. Resting wall motion: Normal. Stress wall motion: Appropriate increase in Left ventricular systolic function and decrease in cavity size. No stress induced segmental wall motion abnormalities. Left ventricular systolic function is normal. Left Ventricular Ejection Fraction = 55-60%. The transmitral spectral Doppler flow pattern is normal for age. The left ventricular ejection fraction increases normally with stress. The left ventricular end-systolic cavity size reduces post-stress (normal response). The left ventricular wall motion with stress is normal. Right Ventricle The right ventricle is normal size. The right ventricular systolic function is normal. Atria The left atrial size is normal. Right atrial size is normal. Aortic Valve The aortic valve is trileaflet. There is no significant aortic regurgitation. No hemodynamically significant valvular aortic stenosis. Mitral Valve There is mild mitral annular calcification. There is mild mitral regurgitation. Tricuspid Valve The tricuspid valve anatomy is normal. There is mild tricuspid regurgitation. Right ventricular systolic pressure is normal. Pulmonic Valve The pulmonic valve leaflets are thin and pliable; valve motion is normal. Pericardium There is no pericardial effusion. Great Vessels PG Care Time/CCT Total # of Minutes Spent Total Time Spent with Patient: Total time spent is greater than 50% in coordination of care (as documented) at patient's floor/unit and/or counseling patient. I spent a total of 55 minutes on the date of service in preparation, delivery, and documentation of the care provided to this patient excluding any time spent in the performance of separately billed services. This visit was a split-shared visit with the substantive portion of the medical decision making performed by the supervising contract negotiation specialist/billing provider Dr. Long. Coding Level of Care Code 32471 IN/OBS CONSULT LVL 4,60M Diagnoses Chest pain at rest R07.9 Dyspnea on exertion R06.09 Hypertension I10 Hypertension type: unspecified Family history of ischemic heart disease Z82.49 (3) Hypertension Hypertension type: unspecified Qualified Code(s): I10 - Essential (primary) hypertension
[2025-06-22 11:20] VITALS: BP 129/83; RESP 20; TEMP 97.9
[2025-06-22] MEDS: GABAPENTIN 100 MG CAP PO SCH (12:41)
[2025-06-22] MEDS: GABAPENTIN 300 MG CAP PO SCH (12:41)
[2025-06-22] MEDS: busPIRone 15 MG TAB PO SCH (12:41)
[2025-06-22] MEDS ORDERED: Nursing to Pharmacy Communication SCH (12:45)
--- NOTE | 2025-06-22 13:06 | Hospitalist Progress Note ---
Date of Service June 22, 2025 Assessment & Plan (1) Chest pain: Plan: Atypical chest pain --Chest CT:No CT evidence of an aortic dissection or acute abnormality in the chest. -- Troponin negative -Normal TSH --Stress test: Pending result Will recommend to get lipid panel, A1c as outpatient Appreciate cardiology input Advised to follow-up with PCP in 1 week (2) Bipolar disorder: Plan: Continue MACHINE SKIVER medications (3) GERD (gastroesophageal reflux disease): Plan: Continue PPI (4) Hypertension: Plan: Monitor blood pressure Patient apparently started on lisinopril in the office DVT Px: SCDs for now CODE STATUS Full code Admission and Anticipated Discharge Date Admission Date: June 21, 2025 Subjective Patient is seen and examined at bedside Chest pain resolved Had stress test this morning Discussed with cardiology today Denies any dyspnea, nausea, vomiting, abdominal pain, dizziness Review of Systems Review of Systems: All systems reviewed & are unremarkable except as noted in Subjective Physical Exam Physical Exam: Physical Exam: Vitals signs as noted above General Appearance:Overweight, no apparent distress Head: normocephalic, Atraumatic Eyes: normal inspection, EOMI Neck: supple, Trachea midline Respiratory/Chest: Normal breath sounds, CTA, No accessory muscle use Cardiovascular: S1, S2, No murmur Abdomen/GI:Soft, Non tender, Bowel sounds present Extremities/Musculoskeletal:normal inspection, no edema Neurologic/Psych:AAOX3, grossly no focal neurological deficits Skin: normal color, warm Results & Data Results & Data Vital Signs (Past 12 Hours) Vital Signs Temp Pulse Resp BP Pulse Ox O2 Del Method 06/22/25 11:19 36.6 C 63 20 129/83 96 Room Air 06/22/25 06:40 36.7 C 63 16 119/79 96 Room Air 06/22/25 03:00 55 L 16 137/80 97 Room Air 06/22/25 02:00 64 16 165/79 H 97 Room Air Laboratory Results Short CBC 06/21/25 06/22/25 Range/Units 18:18 03:55 WBC 8.01 5.33 (4.8-10.8) K/ul Hgb 13.2 12.1 (12.0-16.0) g/dl Hct 38.6 36.2 L (37.0-47.0) % Plt Count 184 141 (130-400) K/uL BMP 06/21/25 06/22/25 18:18 03:55 Sodium 139 138 Potassium 3.4 L 3.4 L Chloride 101 104 Carbon Dioxide 29 31 BUN 8 7 Creatinine 0.97 0.96 Glucose 84 118 H Calcium 9.6 8.9 Liver Function 06/21/25 Range/Units 18:18 Total Bilirubin 0.3 (0.2-1.0) mg/dl AST 18 (13-39) U/L ALT 20 (7-52) U/L Alkaline Phosphatase 52 (34-104) U/L Albumin 4.3 (3.4-5.0) gm/dl (1) Chest pain Chest pain type: unspecified Qualified Code(s): R07.9 - Chest pain, unspecified
[2025-06-22] MEDS: POTASSIUM CHLORIDE 10 MEQ TABCR PO ONE ×2 (13:15)
--- NOTE | 2025-06-22 14:10 | XCELERA ---
[id number] \\[id number]
--- NOTE | 2025-06-22 14:35 | Discharge Summary ---
Date of Service June 22, 2025 Admission HPI Per Admitting Provider Daria Renteria is a pleasant 49-year-old woman with a PMHX of bipolar disorder, anxiety, depression, GERD, and hypertension (taken off meds). She was seen by her PCP office today and started on lisinopril foe elevated BP, She has been having chest pains radiating between her shoulder blades and left arm on and off for the past several weeks. She reports she will feel nauseated and lightheaded. She has fatigue and has been having ROBB. She denies cough, fevers, chills, ST or congestion. Patient was referred to cardiology today by her PCP. However due to worsening symptoms she presents to the ED this evening for evaluation. Initially her blood pressure was high at 170/90s but improved with IV fluid hydration and IV APAP. In the ED she has mild reproducible anterior chest wall discomfort without discrete tenderness. Her EKG was without significant change from prior. CXR was clear. CT of the chest with dissection protocol was performed and was negative for acute aortic pathology, PE or acute process otherwise.. High-sensitivity troponin was normal at 4.9. Lipase was not elevated. Heart score is 4, moderate risk. Admission Exam Per Admitting Provider General- adult female seen at bedside Head- atraumatic Eyes- PERRL, EOMI, anicteric ENT- oropharynx clear Neck- supple, no JVD, no adenopathy, no thyromegaly; carotids +2/2, no bruits appreciated Lungs- clear to auscultation and percussion Heart- regular rhythm; no murmur, no gallop, no rub appreciated Abdomen- normal bowel sounds, soft, nontender, no masses or hepatosplenomegaly Extremities- no pretibial edema, no calf tenderness; peripheral pulses intact M/S: Does have palpable chest wall pain Neuro- alert, oriented x 3; PERRL, EOMI; no facial palsy; no dysarthria; Skin- warm & dry Principal Diagnosis Atypical chest pain Hypertension Discharge Data Allergies Allergy/AdvReac Type Severity Reaction Status Date / Time morphine Allergy Unknown Hallucinati Verified 07/04/20 20:44 ng Consultations 06/21/25 21:15 ED Decision to Admit Stat 06/22/25 00:48 Consult Cardiology Routine Procedures Performed Laboratory Results WBC 5.33 K/ul (4.8-10.8) 06/22/25 03:55 RBC 3.96 M/uL (4.20-5.40) L 06/22/25 03:55 Hgb 12.1 g/dl (12.0-16.0) 06/22/25 03:55 Hct 36.2 % (37.0-47.0) L 06/22/25 03:55 MCV 91.4 fL (80.0-100.0) 06/22/25 03:55 MCH 30.6 pg (25.0-34.0) 06/22/25 03:55 MCHC 33.4 g/dL (32.0-36.0) 06/22/25 03:55 RDW Std Deviation 41.2 fL (36.4-46.3) 06/22/25 03:55 RDW Coeff of Seth 12.3 % (11.5-14.5) 06/22/25 03:55 Plt Count 141 K/uL (130-400) 06/22/25 03:55 MPV 10.0 fL (9.4-12.4) 06/22/25 03:55 Immature Gran % (Auto) 0.2 % 06/21/25 18:18 Neut % (Auto) 69.5 % 06/21/25 18:18 Lymph % (Auto) 20.1 % 06/21/25 18:18 Kendall % (Auto) 7.9 % 06/21/25 18:18 Eos % (Auto) 1.7 % 06/21/25 18:18 Baso % (Auto) 0.6 % 06/21/25 18:18 Neut # (Auto) 5.56 K/uL (1.40-6.50) 06/21/25 18:18 Lymph # (Auto) 1.61 K/uL (1.20-3.40) 06/21/25 18:18 Kendall # (Auto) 0.63 K/uL (0.11-0.59) H 06/21/25 18:18 Eos # (Auto) 0.14 K/uL (0.00-0.50) 06/21/25 18:18 Baso # (Auto) 0.05 K/uL (0.00-0.20) 06/21/25 18:18 Immature Gran # (Auto) 0.02 K/uL (0.01-0.20) 06/21/25 18:18 Sodium 138 mmol/L (136-145) 06/22/25 03:55 Potassium 3.4 mmol/L (3.5-5.1) L 06/22/25 03:55 Chloride 104 mmol/L (98-107) 06/22/25 03:55 Carbon Dioxide 31 mmol/L (21-32) 06/22/25 03:55 Anion Gap 3 (3-11) 06/22/25 03:55 BUN 7 mg/dl (6-23) 06/22/25 03:55 Creatinine 0.96 mg/dl (0.6-1.2) 06/22/25 03:55 Est Cr Clr Drug Dosing 74.9 ml/min 06/22/25 03:55 eGFR 71.63 06/22/25 03:55 BUN/Creatinine Ratio 7.3 (10-20) L 06/22/25 03:55 Glucose 118 mg/dl (70-99(Fasting)) H 06/22/25 03:55 Calcium 8.9 mg/dl (8.6-10.3) 06/22/25 03:55 Phosphorus 2.7 mg/dl (2.5-4.9) 06/21/25 18:18 Magnesium 2.0 mg/dl (1.7-2.4) 06/22/25 03:55 Total Bilirubin 0.3 mg/dl (0.2-1.0) 06/21/25 18:18 AST 18 U/L (13-39) 06/21/25 18:18 ALT 20 U/L (7-52) 06/21/25 18:18 Alkaline Phosphatase 52 U/L (34-104) 06/21/25 18:18 Troponin I High Sens 4.9 pg/ml (0-14) 06/21/25 18:18 Total Protein 6.9 gm/dl (6.0-8.3) 06/21/25 18:18 Albumin 4.3 gm/dl (3.4-5.0) 06/21/25 18:18 Globulin 2.6 gm/dl (2.5-4.0) 06/21/25 18:18 Albumin/Globulin Ratio 1.7 (0.9-2) 06/21/25 18:18 Lipase 23 U/L (11-82) 06/21/25 18:18 TSH 2.254 uIu/ml (0.300-4.500) 06/21/25 18:18 Impressions Chest X-Ray 06/21/25 18:10 EXAM: Portable AP chest radiograph TECHNIQUE: AP portable radiograph of the chest was obtained. INDICATION: Shortness of breath Comparison: Chest radiograph July 04, 2020 FINDINGS: LINES and TUBES: None CARDIOVASCULAR: Cardiac silhouette is stable enlarged in size. LUNGS/PLEURA: Mild pulmonary vascular congestion centrally. No focal consolidation identified. Lingular subsegmental atelectasis versus scarring. No significant pleural fluid. No discernible pneumothorax. OSSEOUS/OTHER: No displaced acute osseous process identified. Scoliosis. IMPRESSION: Stable enlarged cardiac silhouette and unchanged mild central pulmonary vascular congestion. Electronically signed by Elvis Cai 06-21-2025 7:06 PM Chest CTA 06/21/25 18:54 EXAMINATION: CT angio chest dissection without/with contrast CLINICAL HISTORY: Chest, back pain, hypertension TECHNIQUE: Contiguous axial images were obtained through the chest without and with the use of intravenous contrast. Sagittal and coronal reformations are supplied. FINDINGS: Allowing for motion artifact, the left-sided aorta is well opacified and measures approximately 2.8 x 2.7 cm at the level of the main pulmonary artery. The descending aorta measures 2.0 cm at this level. No intimal flap in the aorta lumen or CT features of dissection. The descending thoracic aorta has a normal appearance. Appropriate takeoff of the 3 great vessels from the aortic arch is noted. Heart size is normal. No pleural or pericardial effusion. No hyperdense material on the noncontrast enhanced images. No adenopathy in the chest. Trachea and mainstem bronchi are patent. Thyroid is normal in size. Limited visualization of the upper abdomen shows no acute abnormality. Aorta is normal in size. Moderate thoracic scoliosis convex to the right Chest is well-expanded with no acute abnormality. IMPRESSION: No CT evidence of an aortic dissection or acute abnormality in the chest. Electronically signed by Brianne Triana 06-21-2025 7:46 PM Ordered Studies 06/21/25 18:54 CTA chest dissec wo/w con [CT angio chest dissec wo/w con] Stat Hospital Course (1) Chest pain: Atypical chest pain --Chest CT:No CT evidence of an aortic dissection or acute abnormality in the chest. -- Troponin negative -Normal TSH --Stress ECHO: Left ventricle systolic function is normal. Left ventricular EF 55 to 60%. Mild mitral regurgitation. Mild tricuspid regurgitation. No regional wall motion abnormality. No evidence of exercise-induced myocardial ischemia. Appreciate cardiology input Advised to follow-up with PCP in 1 week (2) Bipolar disorder: Continue JEWELRY COATER medications (3) GERD (gastroesophageal reflux disease): Continue PPI (4) Hypertension: PCP recently started patient on lisinopril 20 mg daily Elevated blood pressure thought to be secondary to recent clonidine use due to rebound hypertension. Blood pressure normalized with no medications while in hospital Discussed with cardiology--recommends to decrease Lisinopril to 5 mg daily for now DVT Px: SCDs for now CODE STATUS Full code Disposition Home Total Time Total Time Spent Total Time Spent (In Minutes): 44 minutes Discharge Plan Discharge Items Patient Disposition: Home - Self-Care Reason For Visit: CP Discharge Diagnosis: Atypical chest pain Hypertension Condition on Discharge: Fair Activity: Per Instructions section Exercise/Sports: Gradually increase as tolerated Non-emergency contact: Primary Care Provider and Real Estate Investment Analyst Call non-emergency contact if: you have any medication questions, your symptoms worsen, your pain is concerning for you and you have a fever Follow-up/Referrals: Nisha Arellano MD [Primary Care Provider] - (Date & Time 06/30/2025 9:20 AM Provider: Nisha Tinoco MD Family Medicine [facility] ) Diet: Carb Consistent or DM2 and Heart Healthy Addtl Attending Provider Instructions: -- Follow-up with your primary care physician Dr. Joey Merrill on 06/30/2025 9:20 AM -- Follow-up with your nylon operator as recommended -- Monitor your blood pressure regularly. Discuss with your primary care physician for further adjustment of medications as needed. -- Your elevated blood pressure is thought to be secondary to clonidine use. Avoid taking clonidine as recommended by your nylon operator. Start taking lisinopril 5 mg daily for now. Further recommendations to be determined by your primary care physician/Real Estate Investment Analyst as outpatient Seek immediate medical attention if your symptoms reoccur or worsen Please review medication list provided on discharge for any medication changes as instructed. Please call if you have any questions or problems. You can reach a [facility] hospitalist on duty at [facility] 24 hours a day by calling [phone] Pending Studies at Discharge: No Stand-Alone Forms: My [facility], Smoking Cessation Medications and DC Order Prescriptions: New lisinopril 5 mg tablet 5 mg PO DAILY Qty: 30 0RF Continued divalproex [Depakote ER] 500 mg tablet extended release 24 hr 500 mg PO UD Patient Comments: Patient takes 250mg QAM and 500mg QPM pantoprazole 40 mg tablet,delayed release (DR/EC) 40 mg PO DAILY gabapentin 100 mg capsule 200 mg PO BID metformin 500 mg tablet extended release 24 hr 500 mg PO DAILY doxepin 10 mg capsule 10 mg PO HS bupropion HCl 150 mg tablet extended release 24 hr 450 mg PO DAILY Discontinued lisinopril 20 mg tablet 20 mg PO DAILY Discharge Orders: Discharge Order (Routine); Ordered 06/22/25 Ordered By: Jarret Sol Admission Data Admit Date/Time: 06/21/25 21:51 Attending Provider: Jarret Sol Admit Provider: Glen Stovall Primary Care Provider: Nisha Arellano Other Providers: Glen Stovall; Gila Arenas; Jose Eduardo Dickens; Puneet Quan; Jeancarlos Brito; Yovany Diaz; Elkin Willis; Jazzmine Kim; Shanta Almendarez; Karen Dia; Jumana Teresa; Gila Barrientos; Dex Crowley; Patrick Flores; Tiffanie Jensen; Margy Carpenter; Tracey Calderon; Maty Morrissey; David Tavera; Jackie Lange; Nedra Leigh; Mehrdad Mendoza; Tommy Long N
[2025-06-22] MEDS ORDERED: DOXEPIN HCL 10 MG CAPSULE PO SCH (21:00)
[2025-06-22] MEDS ORDERED: DIVALPROEX DELAY RELEASE 500 MG TAB PO SCH (21:00)
--- NOTE | 2025-06-22 22:55 | Electrocardiogram Report ---
Test Reason : Blood Pressure : */* mmHG Vent. Rate : 68 BPM Atrial Rate : 68 BPM P-R Int : 132 ms QRS Dur : 80 ms QT Int : 360 ms P-R-T Axes : 14 46 47 degrees QTcB Int : 382 ms Poor data quality, interpretation may be adversely affected Normal sinus rhythm Possible Anterior infarct (cited on or before 17-Feb-2016) Nonspecific T wave abnormality Abnormal ECG When compared with ECG of 17-Feb-2016 14:13, No significant change was found Confirmed by Lisandro Rooney ([id number]) on 06/22/2025 10:54:48 PM Referred By: REFERRED SELF Confirmed By: Lisandro Rooney
--- NOTE | 2025-06-22 23:33 | Electrocardiogram Report ---
Test Reason : Blood Pressure : */* mmHG Vent. Rate : 61 BPM Atrial Rate : 61 BPM P-R Int : 142 ms QRS Dur : 76 ms QT Int : 426 ms P-R-T Axes : 25 57 74 degrees QTcB Int : 428 ms Normal sinus rhythm Nonspecific T wave abnormality When compared with ECG of 21-Jun-2025 18:13, No significant change was found Confirmed by Lisandro Rooney ([id number]) on 06/22/2025 11:33:32 PM Referred By: REFERRED SELF Confirmed By: Lisandro Rooney
== END 2025-06-22 16:35 | disposition home or self-care (01) ==
LOC: ED 17:55 → EDINP 17:55 → 2S 06-22 06:31